=== PATIENT | female | born 1940 | race Caucasian/White ===

== ENCOUNTER 2018-08-02 17:12 | Emergency (ER) | payer MEDICARE, OTHER, SELFPAY ==
[2018-08-02 17:13] VITALS: BP 163/116; PULSE 71; RESP 14; TEMP 35.9; O2SAT 100; BMI 22.6
--- NOTE | 2018-08-02 17:21 | RAD_ITS ---
STUDY: X-RAY - RIGHT WRIST REASON FOR EXAM: Female, 78 years old. Pain status post fall. TECHNIQUE: 3 view(s) of the wrist were obtained. COMPARISON: None. FINDINGS: Bones are demineralized. Normal visualized distal radius and ulna. Normal radiocarpal articulation. Normal distal radioulnar articulation. Normal carpal bones. Normal carpal articulations. Normal carpometacarpal articulation of the thumb. Normal second through fifth carpometacarpal articulations. Normal visualized metacarpal bones. The soft tissue structures are unremarkable. RAD/Wrist min 3 Views IMPRESSION: Normal x-ray examination of the wrist. Electronically Signed: Isabela Parry MD at 17:48 EDT Tel , Service support ,
--- NOTE | 2018-08-02 17:30 | RAD_ITS ---
STUDY: X-RAY - LEFT KNEE REASON FOR EXAM: Female, 78 years old. Left knee pain. TECHNIQUE: 4 view(s) of the knee. COMPARISON: None. FINDINGS: Normal visualized distal femur. Normal visualized proximal tibia and fibula. Normal proximal tibiofibular articulation. There is no demonstrated fracture. Normal medial femorotibial compartment. Normal lateral femorotibial compartment. Normal patellofemoral articulation. There is no demonstrated joint effusion. There are atherosclerotic calcifications. RAD/Knee 4 or More Views IMPRESSION: Normal x-ray examination of the knee. Electronically Signed: Corky Addison MD at 17:52 EDT , Service support ,
--- NOTE | 2018-08-02 17:39 | ED.VISSUMM ---
- ER Visit Summary Date of Service: 08/02/18 Chief Complaint: Mechanical fall, knee pain, wrist pain History of Present Illness: The patient is a 78 F who is otherwise healthy presents to the emergency department with injury after a fall. Patient states she was trying to step over a gait that she has in her house to keep her dog from running. She tripped and fell forward. She did strike her right cheek against a wall but did not lose consciousness. She landed with an outstretched right wrist onto her left knee. She denies other injury. She states she went urgent care but was referred here. She denies any history of fracture. She has not on anticoagulants. Physical Examination: Vital signs reviewed General: Well-nourished, well-developed Head: Normocephalic, atraumatic Eyes: Pupils equal and reactive, extraocular muscles intact Neck, supple, no lymphadenopathy Heart: Regular rate and rhythm Respiratory: No distress, clear bilaterally Abdomen: Soft, nontender, nondistended, no peritoneal signs Back: Nontender Extremities: Mild tenderness in the right wrist and left knee, no laxity, knee extension is intact, pulses are normal, no edema, no cords Skin: Normal color no rash Neuro: Alert and oriented, no focal or lateralizing deficits Test Results: [] Emergency Department Course and Treatment: The patient presents after mechanical fall. She has no evidence of head injury. I did obtain plain films of her wrist and knee. There is no evidence of fracture or dislocation. She is able to extend the knee and bear weight. I do feel her symptoms are secondary to contusion. She will continue ice and Tylenol. The patient will be discharged home. Treatment Plan: [] Disposition: Discharge Impression: 1. Left knee contusion status post fall 2. Right wrist contusion status post fall This note was generated with [employer] dictation software. It may contain incorrect words, spelling, and punctuation that were not noted in review of the chart prior to signing ED Disposition - Plan for ED Patient: Chief Complaint: Fall Instructions: ED Mechanical Fall Referrals: Florida Coleman MD [Primary Care Provider] -
== END 2018-08-02 18:26 | disposition home or self-care (01) ==
LOC: ED 18:21
PROVIDERS: Emergency Provider Emergency Medicine; Family Provider Internal Medicine; PCP Internal Medicine
DX: S80.02XA Contusion of left knee, initial encounter (principal); S60.211A Contusion of right wrist, initial encounter; W18.09XA Striking against other object with subsequent fall, initial encounter; Y93.9 Activity, unspecified; Y92.9 Unspecified place or not applicable; I10 Essential (primary) hypertension; Z79.899 Other long term (current) drug therapy
CPT/HCPCS: 73110; 73564; 99282

== ENCOUNTER 2019-02-23 17:24 | Emergency (ER) | payer MEDICARE, OTHER, SELFPAY ==
[2019-02-23 17:26] VITALS: BP 148/61; PULSE 75; RESP 16; TEMP 36.9; O2SAT 98; BMI 22.5
--- NOTE | 2019-02-23 18:04 | ED.VIS.GEN ---
History of Present Illness Chief Complaint: Eye Problem Informant: Patient Onset: Days - 9 Context: Sudden Onset Timing: Continuous Quality: burn Location: right eye Current Severity: Mild Maximum Severity: Moderate Worsened by: nothing Relieved by: not by Tobradex and moisturizing drops Associated Symptoms: none. no vision change, headache, discharge. Narrative: Patient saw Dr. Engel with ophthalmology after she accidentally got some new hair gel into her right eye, which caused irritation. It was red and burning. The redness is gone, but she still has the burning despite doing the drops the aviation electrician recommended a week ago. She has not called them. It is Monday. - Past Medical History (1) Depression, acute Status: Chronic (2) Hypertension Status: Chronic Past Medical History - Allergies and Home Meds Allergies/Adverse Reactions: Allergies azithromycin [From Zithromax Z-Gabino] Allergy (Verified 02/23/19 17:30) Rash bacitracin [From Neosporin ([id number])] Allergy (Verified 02/23/19 17:30) Rash bacitracin zinc [From Neosporin ([id number])] Allergy (Verified 02/23/19 17:30) Rash fluconazole Allergy (Verified 02/23/19 17:30) Rash iodine Allergy (Verified 02/23/19 17:30) Rash ketoconazole Allergy (Verified 02/23/19 17:30) Rash lactose Allergy (Verified 02/23/19 17:30) Unknown neomycin sulfate [From Neosporin ([id number]-qls-unyaf)] Allergy (Verified 02/23/19 17:30) Rash polymyxin B [From Neosporin (ocf-myh-pvrco)] Allergy (Verified 02/23/19 17:30) Rash promethazine Allergy (Verified 02/23/19 17:30) Unknown hydrochlorothiazide Adverse Reaction (Severe, Verified 02/23/19 17:30) hyponatremia IVP DYE Allergy (Uncoded 02/23/19 17:30) Unknown Primary Care Physician: Florida Coleman MD [Primary Care Provider] - Surgical History: cholecystectomy Lives: Alone Smoking Status: Never smoker - Family History Maternal Family History: Family History (Last Reviewed 04/16/18 @ 14:25 by Lizzie Valentin) Mother CVA (cerebral vascular accident) Father CVA (cerebral vascular accident) Brother Hypertension Family History: Reports: Stroke - Paternal Family History: Family History (Last Reviewed 04/16/18 @ 14:25 by Lizzie Valentin) Mother CVA (cerebral vascular accident) Father CVA (cerebral vascular accident) Brother Hypertension Family History: Reports: Stroke - Review of Systems General: Denies: Chills, Fever Eyes: Reports: - - Right eye pain. Denies: Visual changes - bilaterally, Diplopia Gastrointestinal: Denies: Nausea, Vomiting Physical Exam Vital Signs/Narrative: Vital Signs Temp Pulse Resp BP Pulse Ox 02/23/19 17:26 98.4 F 75 16 148/61 H 98 General: Well nourished, Well developed, No Acute Distress Head: Normocephalic, Atraumatic Eyes: Perrl, EOMI, - - Normal-appearing conjunctivae and cornea. Right eye evaluated with slit-lamp. Deep, quiet anterior chamber. Cornea without lesions. No hypopyon or hyphema. No cell or flare seen. No foreign material. Skin: Normal color, No rash, No Trauma Neurological: Alert, Oriented x3, Cranial nerves II-XII grossly intact, Normal Strength, Normal Sensation, Normal Gait Psychological: Normal affect, Normal Mood Diagnostic/Tx/Re-eval - Medical Decision Making Patient was concerned that her eye pressures may be up because of the medication. She states it was 16 when measured in the office. I advised her that that is very normal. She is reassured. She refuses to allow me to numb her eye with tetracaine and check her pressure, the only device that we have to do that with is a Martin-Pen, which requires that I anesthetize her eye. She also refuses to allow me to inspect her eye with fluorescein staining. She understands that if hair gel hardened and scratched her cornea, that could be missed by not doing this. She has had no vision changes and I doubt acute angle-closure glaucoma. She wants to go home and follow-up with her aviation electrician after the weekend. ED Disposition - Plan for ED Patient: Disposition: Home or Assisted Living Diagnosis: Acute right eye pain Instructions: Corneal Injury, First Aid: Chemical Exposure Referrals: Storm Engel MD [STAFF PHYSICIAN] - 2 Days
--- NOTE | 2019-02-23 18:09 | ED.DCSUM_ITS ---
History of Present Illness Chief Complaint: Eye Problem Informant: Patient Onset: Days - 9 Context: Sudden Onset Timing: Continuous Quality: burn Location: right eye Current Severity: Mild Maximum Severity: Moderate Worsened by: nothing Relieved by: not by Tobradex and moisturizing drops Associated Symptoms: none. no vision change, headache, discharge. Narrative: Patient saw Dr. Engel with ophthalmology after she accidentally got some new hair gel into her right eye, which caused irritation. It was red and burning. The redness is gone, but she still has the burning despite doing the drops the renewable energy consultant recommended a week ago. She has not called them. It is Monday. - Past Medical History (1) Depression, acute Status: Chronic (2) Hypertension Status: Chronic Past Medical History - Allergies and Home Meds Allergies/Adverse Reactions: Allergies azithromycin [From Zithromax Z-Gabino] Allergy (Verified 02/23/19 17:30) Rash bacitracin [From Neosporin ([id number])] Allergy (Verified 02/23/19 17:30) Rash bacitracin zinc [From Neosporin (azk-urc-oroby)] Allergy (Verified 02/23/19 17:30) Rash fluconazole Allergy (Verified 02/23/19 17:30) Rash iodine Allergy (Verified 02/23/19 17:30) Rash ketoconazole Allergy (Verified 02/23/19 17:30) Rash lactose Allergy (Verified 02/23/19 17:30) Unknown neomycin sulfate [From Neosporin ([id number]-dvr-ldwub)] Allergy (Verified 02/23/19 17:30) Rash polymyxin B [From Neosporin (dvw-alh-banho)] Allergy (Verified 02/23/19 17:30) Rash promethazine Allergy (Verified 02/23/19 17:30) Unknown hydrochlorothiazide Adverse Reaction (Severe, Verified 02/23/19 17:30) hyponatremia IVP DYE Allergy (Uncoded 02/23/19 17:30) Unknown Primary Care Physician: Florida Coleman MD [Primary Care Provider] - Surgical History: cholecystectomy Lives: Alone Smoking Status: Never smoker - Family History Maternal Family History: Family History (Last Reviewed 04/16/18 @ 14:25 by Lizzie Valentin) Mother CVA (cerebral vascular accident) Father CVA (cerebral vascular accident) Brother Hypertension Family History: Reports: Stroke - Paternal Family History: Family History (Last Reviewed 04/16/18 @ 14:25 by Lizzie Valentin) Mother CVA (cerebral vascular accident) Father CVA (cerebral vascular accident) Brother Hypertension Family History: Reports: Stroke - Review of Systems General: Denies: Chills, Fever Eyes: Reports: - - Right eye pain. Denies: Visual changes - bilaterally, Diplopia Gastrointestinal: Denies: Nausea, Vomiting Physical Exam Vital Signs/Narrative: Vital Signs Temp Pulse Resp BP Pulse Ox 02/23/19 17:26 98.4 F 75 16 148/61 H 98 General: Well nourished, Well developed, No Acute Distress Head: Normocephalic, Atraumatic Eyes: Perrl, EOMI, - - Normal-appearing conjunctivae and cornea. Right eye evaluated with slit-lamp. Deep, quiet anterior chamber. Cornea without lesions. No hypopyon or hyphema. No cell or flare seen. No foreign material. Skin: Normal color, No rash, No Trauma Neurological: Alert, Oriented x3, Cranial nerves II-XII grossly intact, Normal Strength, Normal Sensation, Normal Gait Psychological: Normal affect, Normal Mood Diagnostic/Tx/Re-eval - Medical Decision Making Patient was concerned that her eye pressures may be up because of the medication. She states it was 16 when measured in the office. I advised her that that is very normal. She is reassured. She refuses to allow me to numb her eye with tetracaine and check her pressure, the only device that we have to do that with is a Martin-Pen, which requires that I anesthetize her eye. She also refuses to allow me to inspect her eye with fluorescein staining. She understands that if hair gel hardened and scratched her cornea, that could be missed by not doing this. She has had no vision changes and I doubt acute angle-closure glaucoma. She wants to go home and follow-up with her renewable energy consultant after the weekend. ED Disposition - Plan for ED Patient: Disposition: Home or Assisted Living Diagnosis: Acute right eye pain Instructions: Corneal Injury, First Aid: Chemical Exposure Referrals: Storm Engel MD [STAFF PHYSICIAN] - 2 Days
[2019-02-23 18:22] VITALS: RESP 15
== END 2019-02-23 18:24 | disposition home or self-care (01) ==
LOC: ED 18:16
PROVIDERS: Emergency Provider Emergency Medicine; Family Provider Internal Medicine; PCP Internal Medicine
DX: H57.11 Ocular pain, right eye (principal); I10 Essential (primary) hypertension
CPT/HCPCS: 99283

== ENCOUNTER 2020-10-28 14:57 | Emergency (ER) | payer MEDICARE, OTHER, SELFPAY ==
[2019-07-11 14:04] VITALS: BMI 20.9
[2020-10-28 14:59] VITALS: BP 147/78; PULSE 79; RESP 16; TEMP 36.2; O2SAT 99; BMI 20.1
[2020-10-28 15:01] VITALS: BP 147/78; PULSE 79; RESP 16; TEMP 36.2; O2SAT 99
--- NOTE | 2020-10-28 15:17 | ED.VIS.GEN ---
History of Present Illness Chief Complaint: Head Injury Informant: Patient Narrative: Patient is an 80-year-old female with a past medical history of hypertension who presents to the emergency department for neck pain and not feeling quite right. She had a fall 2 weeks ago when she struck the back of her head from a standing position. She denies losing consciousness at that time. No other injury noted. She was not seen at that time or since. She states that she has had some blurred vision associated with this. She does have chronic visual problems but feel like they are worse. She has not been taking anything for her symptoms. She is on any blood thinning medications. Patient also brings up that she is feeling depressed. She states that she is on and off issues for quite some time but she is unable to really specify for me. She lives at home by herself. She does not really have family except for 1 brother. She feels very lonely and does not feel like she has a purpose. She denies any thoughts of harming herself or anyone else. She has never been seen before for this issue. She states that she has not been eating much lately as she has not really had an appetite. Past Medical History - Allergies and Home Meds Allergies/Adverse Reactions: Allergies azithromycin [From Zithromax Z-Gabino] Allergy (Verified 07/11/19 14:04) Rash bacitracin [From Neosporin (jza-quk-rzzkr)] Allergy (Verified 07/11/19 14:04) Rash bacitracin zinc [From Neosporin ([id number]-ozp-iyvtt)] Allergy (Verified 07/11/19 14:04) Rash fluconazole Allergy (Verified 07/11/19 14:04) Rash iodine Allergy (Verified 07/11/19 14:04) Rash ketoconazole Allergy (Verified 07/11/19 14:04) Rash lactose Allergy (Verified 07/11/19 14:04) Unknown neomycin sulfate [From Neosporin (ghx-cnx-ibjao)] Allergy (Verified 07/11/19 14:04) Rash polymyxin B [From Neosporin (jtu-krs-saplx)] Allergy (Verified 07/11/19 14:04) Rash promethazine Allergy (Verified 07/11/19 14:04) Unknown hydrochlorothiazide Adverse Reaction (Severe, Verified 07/11/19 14:04) hyponatremia IVP DYE Allergy (Uncoded 07/11/19 14:04) Unknown Primary Care Physician: Florida Coleman MD [Primary Care Provider] - Prior records reviewed: Yes Past Medical History: - - HTN Surgical History: cholecystectomy Smoking Status: Never smoker - Family History Maternal Family History: Family History (Last Reviewed 07/11/19 @ 14:06 by Abi Petersen) Mother CVA (cerebral vascular accident) Father CVA (cerebral vascular accident) Brother Hypertension Family History: Reports: Stroke - Paternal Family History: Family History (Last Reviewed 07/11/19 @ 14:06 by Abi Petersen) Mother CVA (cerebral vascular accident) Father CVA (cerebral vascular accident) Brother Hypertension Family History: Reports: Stroke - Review of Systems All systems negative except as indicated General: Denies: Chills, Fever, Sweats Eyes: Reports: Blurred Vision - bilaterally. Denies: Visual changes - bilaterally, Diplopia ENT: Denies: Rhinorrhea, Sore throat Cardiovascular: Denies: Chest pain, Palpitations Respiratory: Denies: Dyspnea, Cough, Dyspnea on exertion Gastrointestinal: Denies: Abdominal pain, Nausea, Vomiting, Diarrhea Genitourinary: Denies: Dysuria, Hematuria, Frequency Musculoskeletal: Reports: Neck pain. Denies: Back pain, Extremity Pain Skin: Denies: Rash, Wounds Neurological: Denies: Headache, Weakness, Numbness Psych: Reports: Depression. Denies: Suicidal thoughts, Suicidal ideations Physical Exam Vital Signs/Narrative: Vital Signs Temp Pulse Resp BP Pulse Ox 10/28/20 15:01 97.1 F L 79 16 147/78 H 99 10/28/20 14:59 97.1 F L 79 16 147/78 H 99 Inital Vital Signs reviewed: Yes General: Well nourished, Well developed, No Acute Distress Head: Normocephalic, Atraumatic Eyes: Perrl, EOMI ENT: Moist mucous membranes, No rhinorrhea Neck: Supple, Nontender Cardiovascular: Regular rate, Regular rhythm, No murmurs Respiratory: No distress, CTA bilaterally, Chest nontender Abdomen: Soft, Nontender, Nondistended, Normal bowel sounds Back: Nontender, Normal Inspection Extremities: Nontender, No edema Skin: Normal color, No rash Neurological: Alert, Oriented x3, Cranial nerves II-XII grossly intact, Normal Strength, Normal Sensation Psychological: Normal affect, Normal Mood Diagnostic/Tx/Re-eval - Medical Decision Making Patient presents to the emergency department for a fall that occurred 2 weeks ago. She has been having neck pain and blurred vision. She is also complaining of what sounds like a lot of depression symptoms. She lives at home by herself and is lonely. Will obtain CT scan of the head and neck. Most likely she is suffering from postconcussive symptom. Will have high school social science teacher evaluate patient for resources. I did offer pain medication but she is refusing. CT scan of the head did not reveal any acute traumatic findings. Neck does show degenerative changes but no fracture or subluxation. Social work did give resources. Apparently patient has been in counseling before and would like to get restarted on this. He also gave her info to [facility] who is going to contact her. Patient feels good with this plan and does feel comfortable being discharged home. She is to have close follow-up with her PCP. Return precautions were discussed with her. I did recommend that she take ibuprofen and Tylenol as needed for the neck discomfort. She understands and is agreeable this plan. All questions were answered. ED Disposition - Plan for ED Patient: Disposition: Home or Assisted Living Diagnosis: CHI (closed head injury), Depression Instructions: ED Head Injury (Adult), ED Depression Referrals: Florida Coleman MD [Primary Care Provider] - 3-5 Days
--- NOTE | 2020-10-28 15:22 | CT_ITS ---
STUDY: CT CERVICAL SPINE WITHOUT CONTRAST REASON FOR EXAM: Female, 80 years old. FALL 2 WEEKS AGO RADIATION DOSAGE (If Supplied By Facility): CTDIvol = ( 11.79 ) mGy, DLP = ( 475.34 ) mGycm TECHNIQUE: High resolution transaxial imaging was performed without contrast material. Sagittal and coronal images were reconstructed. Individualized dose optimization techniques were used for this CT. COMPARISON: None FINDINGS: Normal craniovertebral junction. There are degenerative changes of the anterior atlantoaxial articulation. Normal odontoid process. Normal cervical lordosis. Normal vertebral bodies and posterior osseous elements. C2-3: Normal endplates. Normal disc height and morphology. Normal central canal and intervertebral neuroforamina. C3-4: Minimal anterior listhesis of C3 on C4. Facet joint osteoarthritis and hypertrophy. C4-5: Moderate degree of disc space narrowing. Spondylosis. No significant stenosis is seen. C5-6: Moderate degree of disc space narrowing and spondylosis. Uncovertebral arthrosis. Minimal bilateral neural foraminal stenosis. C6-7: Normal endplates. Normal disc height and morphology. Normal central canal and intervertebral neuroforamina. C7-T1: Normal endplates. Normal disc height and morphology. Normal central canal and intervertebral neuroforamina. Normal visualized soft tissue structures. CT/Spine Cervical without Contras IMPRESSION: Multilevel degenerative changes, as described above. Electronically Signed: Carlitos Rosario, at 16:03 EST , Service support ,
--- NOTE | 2020-10-28 15:22 | CT_ITS ---
STUDY: CT BRAIN WITHOUT CONTRAST REASON FOR EXAM: Female, 80 years old. FALL 2 WEEKS AGO RADIATION DOSAGE (If Supplied By Facility): CTDIvol = ( 44.99 ) mGy, DLP = ( 779.24 ) mGycm TECHNIQUE: Transaxial CT imaging of the brain was performed without administration of intravenous contrast material. Individualized dose optimization techniques were used for this CT. COMPARISON: Comparison is made with prior study dated 01/27/2011. FINDINGS: Normal soft tissue structures. There is hyperostosis frontalis internus. There is mild cerebral atrophy with widening of the extra-axial spaces and ventricular dilatation. There are areas of decreased attenuation within the white matter tracts of the supratentorial brain, consistent with microvascular disease changes. Normal basal ganglia and thalami. Normal brainstem. Normal cerebellum. There is no intracranial hemorrhage. There are no findings of an acute ischemic infarction. Atherosclerotic calcification of the cavernous portions of the internal carotid arteries bilaterally. Normal visualized paranasal sinuses. CT/Brain/Head without Contrast IMPRESSION: Chronic involutional changes of the brain. Electronically Signed: Carlitos Rosario, at 16:02 EST , Service support ,
--- NOTE | 2020-10-28 15:45 | CM.ED ---
Social Work Consult: Resources Informant: Dr. Conroy Met with patient in room. Introduced self and social insurance administrator role. Patient agreeable to speak with this social insurance administrator. Patient reports to live at home alone for the past 5 years since patient spouse, Lasha . Patient voices concerns about being able to do okay on my own. This social insurance administrator exploring patient concerns. Patient reports that patient spouse use to pump gas in my car and write all the checks and did lots for me. Patient reports that currently to have neighbors and friends that have been helping with getting gas in patient car and assisting with writing checks. This social insurance administrator attempting to focus on patient strengths and resiliency after patient spouse passed to reach out for supports. Patient states Yeah I guess you rights, I get anxious about things. This social insurance administrator exploring if patient has any history of mental health services. Patient reports to have a history of being in counseling but it has been awhile. This social insurance administrator explored patient openness to start counseling again, patient open to this social insurance administrator providing patient with list of local counseling agencies. Patient is also agreeable to this social insurance administrator making referral to [facility] senior environmental permitting specialist to see if there are any further services that patient would benefit from. Patient reports to be primarily independent and still drives. Patient states main limitation currently is taking care of the house. Patient also reports to have thought about assisted living. This social insurance administrator provided patient with information on local assisted livings, patient open to receiving this list. Patient denies any suicidal thoughts, plans or intents but does report to feel down. Active support and listening provided throughout conversation. Patient thanked this social insurance administrator. This social insurance administrator provided patient with information on all mentioned resources and encouraged patient to reach out to a local counseling agency. Updated Dr. Conroy on above. PLAN: Discharge to community Referral for [facility] program faxed to Lias Sequeira at [email or web address]. Tanja HAYS, HIREN.
--- NOTE | 2020-10-28 16:33 | ED.RN ---
DISCHARGE INSTRUCTIONS GIVEN TO AND REVIEWED WITH PATIENT, PATIENT DENIES QUESTIONS OR CONCERNS AND VOICES UNDERSTANDING OF DISCHARGE INSTRUCTIONS. PT AMBULATES OUT OF ROOM WITHOUT DIFFICULTY.
== END 2020-10-28 16:34 | disposition home or self-care (01) ==
PROVIDERS: Emergency Provider Emergency Medicine; PCP Internal Medicine
DX: S09.90XA Unspecified injury of head, initial encounter (principal); W18.09XA Striking against other object with subsequent fall, initial encounter; Y93.9 Activity, unspecified; Y92.89 Other specified places as the place of occurrence of the external cause; Y99.9 Unspecified external cause status; F32.9 Major depressive disorder, single episode, unspecified; I10 Essential (primary) hypertension; Z82.49 Family history of ischemic heart disease and other diseases of the circulatory system; Z88.1 Allergy status to other antibiotic agents; Z88.3 Allergy status to other anti-infective agents; Z90.49 Acquired absence of other specified parts of digestive tract
CPT/HCPCS: 70450; 72125; 99282

== ENCOUNTER 2022-09-03 12:09 | Emergency (ER) | payer MEDICARE, OTHER, SELFPAY ==
[2022-09-03 12:18] VITALS: BP 142/68; PULSE 85; RESP 28; TEMP 36.9; O2SAT 97; BMI 19.8
--- NOTE | 2022-09-03 12:26 | CT_ITS ---
EXAM: CT HEAD WITHOUT INTRAVENOUS CONTRAST CLINICAL INDICATION: altered mental status TECHNIQUE: Multiple axial images were obtained of the head without intravenous contrast. CTDIvol = ( 44.99 ) mGy, DLP = ( 779.24 ) mGycm This CT exam was performed using one or more of the following dose reduction techniques: automated exposure control, adjustment of the mA and/or kV according to patient size, and/or use of iterative reconstruction technique. This report was created using [employer] report generation technology. COMPARISON: 10/28/2020 CT FINDINGS: BRAIN AND EXTRA-AXIAL SPACES: No acute intracranial hemorrhage, mass effect or edema. No evidence of acute cortical stroke. Periventricular small vessel ischemic change. No midline shift or hydrocephalus. Diffuse parenchymal atrophy. Posterior fossa structures are unremarkable. Basal cisterns are patent. BONES/JOINTS: Unremarkable. No discrete lytic or blastic abnormalities. VASCULATURE: Atherosclerotic calcifications of the carotid siphons and vertebrobasilar arteries. SINUSES: Unremarkable as visualized. Clear. MASTOID AIR CELLS: Visualized sinuses and mastoid air cells are clear. ORBITS: Visualized globes, extraocular muscles, optic nerves and retrobulbar fat appear unremarkable. CT/Brain/Head without Contrast IMPRESSION: 1. No evidence of acute intracranial pathology. 2. Diffuse involutional changes and chronic ischemic small vessel white matter disease. Electronically Signed: Carl Grossman MD at 13:28 EST ,
--- NOTE | 2022-09-03 12:28 | EKG12_ITS ---
Test Reason : CONFUSION Blood Pressure : / mmHG Vent. Rate : 085 BPM Atrial Rate : 085 BPM P-R Int : 126 ms QRS Dur : 070 ms QT Int : 324 ms P-R-T Axes : 062 064 058 degrees QTc Int : 385 ms Normal sinus rhythm Normal ECG Confirmed by ANGIE REEDER, GIRMA ([id number]), development editor FINESSE LUCIO ([id number]) on 09/06/2022 11:04:38 AM Referred By: Confirmed By:GIRMA ADAMS MD
--- NOTE | 2022-09-03 12:30 | EX.ED.DYSGE1 ---
HPI History of Present Illness Chief Complaint: Confusion Informant: patient and EMS Narrative Narrative: Patient lives alone and is confused, she cannot present a good history, she admits to having some diarrhea and dysuria and feeling weak all over but denies any other symptoms, and cannot tell us how long she has had these, just for a while. Although the patient is the only when here right now being brought by EMS, apparently the patient's kgipwy-qw-bvh had talked to her and noted that she was confused and called EMS for her. [facility] Medical History (Updated 09/03/22 @ 15:[address] Migue Deras MD) Anxiety Depression, acute Diverticulosis Essential hypertension GERD (gastroesophageal reflux disease) Hyponatremia Macular degeneration Home Medications lorazepam 0.5 mg tablet 0.5 mg PO DAILY 12/10/13 [History Last Taken 12/28/15] vit C 250 mg-vit E 90 mg-zinc 40 mg-copper 1 ia-ualtvx-uvytdi capsule 1 ea PO DAILY 12/10/13 [History Last Taken 12/28/15] metoprolol tartrate 50 mg tablet 25 mg PO BID 01/10/14 [History Last Taken 12/29/15] amlodipine 5 mg tablet 2.5 mg PO DAILY 12/15/15 [History Last Taken 12/29/15] dexlansoprazole 60 mg capsule,biphase delayed release (Dexilant) 60 mg PO QDAY 04/16/18 [History Last Taken Unknown] losartan 50 mg tablet 50 mg PO DAILY 07/11/19 [History Last Taken Unknown] losartan 25 mg tablet 25 mg PO QHS 09/03/22 [History Last Taken Unknown] Allergy/AdvReac Type Severity Reaction Status Date / Time azithromycin Allergy Rash Verified 09/03/22 12:18 [From Zithromax Z-Gabino] bacitracin Allergy Rash Verified 09/03/22 12:18 [From Neosporin ([id number])] bacitracin zinc Allergy Rash Verified 09/03/22 12:18 [From Neosporin ([id number])] fluconazole Allergy Rash Verified 09/03/22 12:18 iodine Allergy Rash Verified 09/03/22 12:18 ketoconazole Allergy Rash Verified 09/03/22 12:18 lactose Allergy Unknown Verified 09/03/22 12:18 neomycin sulfate Allergy Rash Verified 09/03/22 12:18 [From Neosporin ([id number])] polymyxin B Allergy Rash Verified 09/03/22 12:18 [From Neosporin ([id number])] promethazine Allergy Unknown Verified 09/03/22 12:18 hydrochlorothiazide AdvReac Severe hyponatremi Verified 09/03/22 12:18 a IVP DYE Allergy Unknown Uncoded 09/03/22 12:18 Family History Mother CVA (cerebral vascular accident) Father CVA (cerebral vascular accident) Brother Hypertension Surgical History History of cholecystectomy History of hip surgery Social History Smoking Status: Never smoker alcohol intake: never substance use type: does not use ROS ROS ED Review of Systems ROS Unobtainable: due to mental status Constitutional Constitutional ED: Denies chills or fever(s) Eyes Eyes: Denies change in vision ENT ENT ED: Denies sore throat Cardiovascular Cardiovascular: Denies chest pain or palpitations Respiratory/Chest Respiratory/Chest: Denies dyspnea Gastrointestinal Gastrointestinal: Denies abdominal pain, nausea or vomiting Genitourinary Genitourinary ED: Reports dysuria; Denies hematuria Musculoskeletal Musculoskeletal: Reports back pain; Denies neck pain Integumentary Denies abscess or rash Neurologic Neurologic: Reports confusion; Denies headache(s), paresthesias or weakness Psychiatric Psychiatric: Denies anxiety or suicidal thoughts EXAM Physical Exam Const Vital Signs: 09/03/22 12:18 09/03/22 12:22 09/03/22 14:04 Temperature 98.4 F 98.4 F Temperature Source Oral Oral Pulse Rate 85 85 Respiratory Rate 28 H 28 H Respiratory Effort Normal Non-Labored Respiratory Pattern Normal Blood Pressure 142/68 H 142/68 H Blood Pressure Mean 92 92 Pulse Ox 97 97 Oxygen Delivery Method Room Air Room Air 09/03/22 15:26 Temperature 98.4 F Temperature Source Oral Pulse Rate 77 Respiratory Rate 18 Respiratory Effort Respiratory Pattern Blood Pressure 142/68 H Blood Pressure Mean 92 Pulse Ox 97 Oxygen Delivery Method Room Air Positive well nourished and well developed General Appearance ED: well developed and NAD HEENT Reports dry mucous membranes normocephalic and atraumatic Mouth ED: Yes dry mucous membranes Mouth: dry mucous membranes Eyes PERRL and EOMs intact bilaterally Neck full ROM, no lymphadenopathy and supple Resp normal respiratory effort and clear to auscultation bilaterally Cardio regular rate, regular rhythm and no murmurs GI non-tender and non-distended Auscultation: normoactive bowel sounds Palpation: soft Back/Spine no CVA tenderness General Back: other FROM Extremity normal to inspection General Extremety ED: Negative for edema, pulses abnormal or tenderness General Extremity: Negative for edema or pulses abnormal Neuro CN's II-XII intact bilaterally and no sensory deficits noted Neuro Narrative: 4/5 strength throughout all 4 extremities, no asymmetry. Confused, not oriented to time but does know that she is in the right place. Sensorium / Orientation: awake, alert and orientation impaired Motor Exam: general weakness Skin no rashes or lesions noted Skin Narrative: Healing wound versus rash medial right lower leg/calf, nontender. Some sloughing superficial epidermis over it. Fairly well-circumscribed, no ulceration or signs of acute infection. MDM MDM MDM Narrative Medical decision making narrative: Medical work-up on this patient is negative except for mild prerenal azotemia consistent with how she looks clinically, a little dehydrated. She was given IV fluids, her jfbmza-xj-aax arrived before the IV fluids were given, and states afterwards she think she looks much better than she did earlier, the patient is ambulatory to and from the bathroom without assistance and doing better than she was before. Medically otherwise there is nothing else acute going on, her cardiac work-up is normal, urine shows no infection, CT of the head negative for anything acute, and chest x-ray 1 view on my interpretation is negative for any pneumonia/infection. Discussed at length with the patient and her rjetxc-jw-ikz, who states that she suspects the patient is getting dementia like her had before he . Patient has been having progressively worsening memory issues, but the patient affirms that she can still care for herself, and declines an offer for admission/placement and wants to go home. I discussed this with the physician on-call for her PCP, Dr. Capone, and turns out the patient has an appointment at their office 2 days from now on Monday. We do not have social work here today for me to assist in this patient's care after she leaves the ED, I think she may benefit from a home health evaluation in addition to an evaluation for possible dementia for which she is not on medications at this time. Discussed with the [id number] and the patient and the PCP on-call and they are all comfortable with this overall plan. Lab Data Attestation: I reviewed the patient's lab results. Labs: Laboratory Results - last 24 hr 09/03/22 09/03/22 09/03/22 13:05 13:05 13:35 WBC 11.4 H RBC 3.41 L Hgb 10.9 L Hct 33.2 L MCV 97.4 MCH 32.0 MCHC 32.8 RDW Std Deviation 45.1 H RDW Coeff of Pranav 12.5 Plt Count 196 MPV 10.5 Immature Gran % (Auto) 0.500 Neut % (Auto) 76.1 H Lymph % (Auto) 12.1 L [place] % (Auto) 10.8 H Eos % (Auto) 0.1 Baso % (Auto) 0.4 Absolute Neuts (auto) 8.7 H Absolute Lymphs (auto) 1.38 Nucleated RBC % 0 Platelet Estimate ADEQUATE RBC Morphology NORM C+C Sodium 136 Potassium 4.8 Chloride 109 H Carbon Dioxide 20.0 L Anion Gap 7 BUN 19 H Creatinine 0.66 Estim Creat Clear Calc 33.11 Est GFR (MDRD) Af Amer 110 Est GFR (MDRD) Non-Af 91 BUN/Creatinine Ratio 28.8 H Glucose 94 Calcium 9.3 Total Bilirubin 0.90 AST 36 ALT 35 Alkaline Phosphatase 84 Total Protein 6.3 L Albumin 2.7 L Globulin 3.6 Albumin/Globulin Ratio 0.8 L Lipase 84 Urine Color Yellow Urine Clarity Clear Urine pH 6.0 Ur Specific [place] 1.015 Urine Protein Negative Urine Glucose (UA) Normal Urine Ketones 15 H Urine Occult Blood 10 H Urine Nitrite Negative Urine Bilirubin Negative Urine Urobilinogen Normal Ur Leukocyte Esterase Negative Urine RBC 0 SEEN Urine WBC 0-5 SEEN Ur Squamous Epith Cells 0-5 SEEN Urine Bacteria 0 SEEN Urine Mucus 0 SEEN Radiography Diagnostic Testing: Clinical Impression(s) from Imaging Studies Brain CT 09/03/22 12:26 IMPRESSION: 1. No evidence of acute intracranial pathology. 2. Diffuse involutional changes and chronic ischemic small vessel white matter disease. Electronically Signed: Carl Grossman MD at 13:28 EST , Chest X-Ray 09/03/22 13:13 IMPRESSION: No acute cardiopulmonary disease. Electronically Signed: Carl Grossman MD at 13:24 EST , Rhythm Strip Rhythm Strip: Sinus Rhythm Rate: 85 Ectopy: None EKG Initial EKG: Attestation: I personally reviewed and interpreted this EKG as follows: Interpretation: Sinus Rhythm and No Acute Injury Pattern Comments: nml EKG Discharge Plan Triage Chief Complaint: Confusion Other Complaint: Diarrhea Complaint Weakness ED Provider: Migue Deras Dx/Rx/DC Orders Clinical Impression: Mild dehydration, [place] progression of memory impairment Instructions: Understanding Dementia, Dehydration Prescriptions: No Action dexlansoprazole [Dexilant] 60 mg capsule,biphase delayed releas 60 mg PO QDAY losartan 50 mg tablet 50 mg PO DAILY Label Comments: BLOOD PRESSURE lorazepam 0.5 MG tablet 0.5 mg PO DAILY Label Comments: ANXIETY vit C,N-Xh-koigs-lutein-zeaxan 1 EACH capsule 1 ea PO DAILY Label Comments: SUPPLEMENT metoprolol tartrate 50 MG tablet 25 mg PO BID Label Comments: BLOOD BPRESSURE/HEART RATE amlodipine 5 MG tablet 2.5 mg PO DAILY Label Comments: BLOOD PRESSURE losartan 25 mg Tablet 25 mg PO QHS Primary Care Provider: Florida Coleman Referrals: Florida Coleman MD [Primary Care Provider] - 09/05/22 (as scheduled) Disposition Disposition: Home, Self Care
[2022-09-03] MEDS: 0.9% Normal Saline 1,000 ML 150 ML IV (12:37)
--- NOTE | 2022-09-03 13:13 | RAD_ITS ---
EXAM: XR CHEST, 1 VIEW CLINICAL INDICATION: weakness TECHNIQUE: Frontal view of the chest. This report was created using [employer] report generation technology. COMPARISON: 01/01/2016 FINDINGS: LUNGS AND PLEURAL SPACES: Emphysema suggested. No consolidation. No pleural effusion or pneumothorax. HEART: Unremarkable. Cardiac silhouette not enlarged. MEDIASTINUM: Central airways and mediastinal contour are unremarkable. BONES/JOINTS: Degenerative changes of the spine. Degenerative changes of the acromioclavicular joints. Diffuse osteopenia. SOFT TISSUES: Unremarkable. VASCULATURE: Atherosclerotic calcifications of the nonenlarged thoracic aortic arch. RAD/Chest 1 View (Portable) IMPRESSION: No acute cardiopulmonary disease. Electronically Signed: Carl Grossman MD at 13:24 EST ,
[2022-09-03 13:14] LABS: Absolute Lymphocyte Count 1.38 X10^3/uL (0.83-4.51); Absolute Neutrophil Count 8.7 X10^3/uL (2.0-7.7); Basophil# 0.05 X10^3/uL; Basophil% 0.4 % (0-1); Eosinophil# 0.01 X10^3/uL; Eosinophils% 0.1 % (0-5); Hematocrit 33.2 % (37-47); Hemoglobin 10.9 g/dL (12.0-15.0); Lymphocyte # 1.38 X10^3/ul (0.83-4.51); Lymphocyte % 12.1 % (19-41); Mean Corp Hgb Conc 32.8 g/dL (32-36); Mean Corpuscular Volume 97.4 fL (81-99); Mean Platelet Vol. 10.5 fl (6.2-12.0); Monocyte# 1.23 X10^3/uL; Monocyte% 10.8 % (0-10); NRBC Flagged by Analyzer 0 % (0-5); Neutrophil # 8.66 X10^3/uL (2.7-7.7); Neutrophil % 76.1 % (47-70); POSITIVE COUNT YES; Platelet Count 196 K/mm3 (150-450); RBC Distribution Width CV 12.5 % (11.6-14.6); RBC Distribution Width SD 45.1 fl (35.1-43.9); Red Blood Count 3.41 M/mm3 (4.2-5.4); White Blood Count 11.4 K/mm3 (4.4-11.0)
[2022-09-03 13:38] LABS: Bacteria 0 SEEN /hpf (None Seen); Mucous, Urine 0 SEEN /hpf (<or=2+); Red Blood Cells-Urine 0 SEEN /hpf (0-5)
[2022-09-03 13:39] LABS: Color, Urine Yellow (Yellow); Glucose, Dipstick Normal (Normal); Ketone-Dipstick 15 mg/dl (Negative); Leukocyte Esterase-Dipstick Negative /ul (Negative); Nitrite-Dipstick Negative (Negative); Occult Blood-Urine 10 /ul (Negative); Protein-Dipstick Negative (Negative); Specific Gravity, Urine 1.015 (1.002-1.030); Urine Bilirubin Dipstick Negative (Negative); Urine Clarity Clear (Clear); Urine Urobilinogen Normal (Normal)
[2022-09-03 13:57] LABS: Squamous Epithelial Cells - UA 0-5 SEEN /hpf (5-10); White Blood Cells 0-5 SEEN /hpf (0-5)
[2022-09-03 14:04] VITALS: BP 142/68; PULSE 85; RESP 28; TEMP 36.9; O2SAT 97
[2022-09-03 14:09] LABS: ALB/GLOB Ratio 0.8 RATIO (0.9-2.4); AST(SGOT) 36 U/L (15-37); Alanine Aminotransfer ALT/SGPT 35 U/L (13-56); Albumin, Serum 2.7 g/dL (3.2-5.0); Alkaline Phosphatase 84 U/L (45-117); Anion Gap 7 (5-15); BUN 19 mg/dL (7-18); BUN/Creat Ratio 28.8 RATIO (10-20); Calcium,Total 9.3 mg/dL (8.5-10.1); Chloride 109 mmol/L (98-107); Creatinine, Serum 0.66 mg/dL (0.55-1.02); EST Glomerular Filtration Rate 91 mL/min (>60); Est Glom Filt Rate - Afr Amer 110 mL/min (>60); Estimated Creatinine Clearance 33.11 ml/min; Globulin 3.6 g/dL (2.2-4.2); Glucose 94 mg/dL (74-106); Lipase 84 U/L (73-393); Potassium 4.8 mmol/L (3.5-5.1); Protein, Total 6.3 g/dL (6.4-8.2); Sodium Level 136 mmol/L (136-145)
[2022-09-03 14:10] LABS: Differential Indicated SCAN CRITERIA MET
[2022-09-03 14:11] LABS: Platelet Estimate ADEQUATE (ADEQ); Red Cell Morphology NORM C+C NORMAL (NORM C&C)
[2022-09-03 15:26] VITALS: BP 142/68; PULSE 77; RESP 18; TEMP 36.9; O2SAT 97
== END 2022-09-03 15:58 | disposition home or self-care (01) ==
PROVIDERS: Emergency Provider Emergency Medicine; PCP Internal Medicine; Visit Provider Emergency Medicine
DX: E86.0 Dehydration (principal); R19.7 Diarrhea, unspecified; R41.0 Disorientation, unspecified; I10 Essential (primary) hypertension; Z60.2 Problems related to living alone
CPT/HCPCS: 70450; 71045; 80053; 81001; 83690; 85025; 93005; 96360; 96361; 99285; P9612; A4216

== ENCOUNTER 2022-09-05 15:23 | Observation (INO) | payer MEDICARE, OTHER, SELFPAY ==
[2022-09-05] VITALS (8 sets, daily range): BP systolic 135–171; BP diastolic 70–121; PULSE 95–147; RESP 16–21; TEMP 36.4–37; O2SAT 98–100; BMI 20.9; BMI 17.9
--- NOTE | 2022-09-05 17:28 | EDS_ITS ---
HPI History of Present Illness Chief Complaint: Weakness Narrative Narrative: Patient presents with generalized weakness, we saw her 2 days ago for multiple falls however in the meantime she has fallen 5 more times. She had imaging at the time since she had a head injury. She has decreased p.o. intake, she does by her self although she has friends visiting and since she fell on Monday one of the friend stayed with her. She has no fever or chills, she does have some chronic confusion at baseline that is mild. [facility] Medical History Anxiety Depression, acute Diverticulosis Essential hypertension GERD (gastroesophageal reflux disease) Hyponatremia Macular degeneration Home Medications lorazepam 0.5 mg tablet 0.5 mg PO DAILY 12/10/13 [History Last Taken 12/28/15] vit C 250 mg-vit E 90 mg-zinc 40 mg-copper 1 kc-jpwnry-jkthbo capsule 1 ea PO DAILY 12/10/13 [History Last Taken 12/28/15] metoprolol tartrate 50 mg tablet 25 mg PO BID 01/10/14 [History Last Taken 12/29/15] amlodipine 5 mg tablet 2.5 mg PO DAILY 12/15/15 [History Last Taken 12/29/15] dexlansoprazole 60 mg capsule,biphase delayed release (Dexilant) 60 mg PO QDAY 04/16/18 [History Last Taken Unknown] losartan 50 mg tablet 50 mg PO DAILY 07/11/19 [History Last Taken Unknown] losartan 25 mg tablet 25 mg PO QHS 09/03/22 [History Last Taken Unknown] Allergy/AdvReac Type Severity Reaction Status Date / Time azithromycin Allergy Rash Verified 09/05/22 15:34 [From Zithromax Z-Gabino] bacitracin Allergy Rash Verified 09/05/22 15:34 [From Neosporin ([id number])] bacitracin zinc Allergy Rash Verified 09/05/22 15:34 [From Neosporin (gss-bnj-[id number])] fluconazole Allergy Rash Verified 09/05/22 15:34 iodine Allergy Rash Verified 09/05/22 15:34 ketoconazole Allergy Rash Verified 09/05/22 15:34 lactose Allergy Unknown Verified 09/05/22 15:34 neomycin sulfate Allergy Rash Verified 09/05/22 15:34 [From Neosporin ([id number])] polymyxin B Allergy Rash Verified 09/05/22 15:34 [From Neosporin ([id number])] promethazine Allergy Unknown Verified 09/05/22 15:34 hydrochlorothiazide AdvReac Severe hyponatremi Verified 09/05/22 15:34 a IVP DYE Allergy Unknown Uncoded 09/05/22 15:34 Family History Mother CVA (cerebral vascular accident) Father CVA (cerebral vascular accident) Brother Hypertension Surgical History History of cholecystectomy History of hip surgery Social History Smoking Status: Never smoker alcohol intake: never substance use type: does not use ROS ROS ED ROS Narrative Past medical history: Reviewed, history of dehydration history of hypertension, history of depression and history of Medications: Reviewed Social history: Lives alone Review of systems: All systems negative except as indicated General: No fever. Generalized weakness Eyes: No visual changes ENT: No upper airway congestion, normal voice Neck: No neck pain Cardiovascular: No chest pain Respiratory: No shortness of breath or cough Gastrointestinal: No abdominal pain, nausea vomiting or diarrhea. She has decreased p.o. intake. Genitourinary: No dysuria Musculoskeletal: Denies myalgias no difficulty with ambulation Skin: No rash Neurological: No memory loss, confusion or any focal weakness Psych: Admits to being anxious. She does not want anything for this today Hematologic: No easy bleeding or easy bruising EXAM Physical Exam Narrative Exam Narrative: Physical exam General: Patient appears chronically Head: Normocephalic, Atraumatic Eyes: Conjunctiva not pale ENT: Dry mucous membranes Neck: Supple, Nontender, No lymphadenopathy Cardiovascular: Regular rate, Regular rhythm Respiratory: No distress, CTA bilaterally Abdomen: Soft, Nontender, Nondistended Back: Nontender, Normal Inspection. Negative for: CVA tenderness Extremities: Nontender, No edema Skin: Normal color, No rash Neurological: Alert, she is oriented to person and place, she knows the year but not the month or date. Normal Strength, Normal Sensation Psychological: Anxious appear Const Vital Signs: 09/05/22 15:29 09/05/22 16:48 09/05/22 17:16 Temperature 97.5 F L Temperature Source Temporal Pulse Rate 95 Respiratory Rate 18 16 Respiratory Effort Normal Non-Labored Respiratory Pattern Normal Blood Pressure 147/80 H Blood Pressure Mean 102 Pulse Ox 100 Oxygen Delivery Method Room Air MDM MDM MDM Narrative Medical decision making narrative: Patient's work-up is unremarkable however it is clear that she cannot go home. I will admit her for placement I talked to social work at this time she is not able to be discharged she is too weak. Lab Data Labs: Laboratory Results - last 24 hr 09/05/22 09/05/22 09/05/22 18:08 18:08 18:47 WBC 13.7 H RBC 4.00 L Hgb 13.0 Hct 38.3 MCV 95.8 MCH 32.5 H MCHC 33.9 RDW Std Deviation 43.1 RDW Coeff of Pranav 12.2 Plt Count 293 MPV 10.4 Immature Gran % (Auto) 0.800 Neut % (Auto) 85.7 H Lymph % (Auto) 7.7 L [place] % (Auto) 5.4 Eos % (Auto) 0.1 Baso % (Auto) 0.3 Absolute Neuts (auto) 11.8 H Absolute Lymphs (auto) 1.06 Nucleated RBC % 0 Sodium 137 Potassium 3.5 Chloride 103 Carbon Dioxide 23.0 Anion Gap 11 BUN 15 Creatinine 0.70 Estim Creat Clear Calc 35.26 Est GFR (MDRD) Af Amer 102 Est GFR (MDRD) Non-Af 84 BUN/Creatinine Ratio 21.3 H Glucose 138 H Calcium 10.8 H Total Bilirubin 0.90 AST 36 ALT 49 Alkaline Phosphatase 109 Total Protein 8.0 Albumin 3.2 Globulin 4.8 H Albumin/Globulin Ratio 0.7 L Urine Color Yellow Urine Clarity Clear Urine pH 5.0 Ur Specific [place] 1.025 Urine Protein 30 H Urine Glucose (UA) Normal Urine Ketones 15 H Urine Occult Blood 10 H Urine Nitrite Negative Urine Bilirubin Negative Urine Urobilinogen 1 H Ur Leukocyte Esterase 100 H Discharge Plan Triage Chief Complaint: Weakness ED Provider: Khoa Escobar Dx/Rx/DC Orders Clinical Impression: Weakness, Dehydration, Falls Prescriptions: No Action dexlansoprazole [Dexilant] 60 mg capsule,biphase delayed releas 60 mg PO QDAY losartan 50 mg tablet 50 mg PO DAILY Label Comments: BLOOD PRESSURE lorazepam 0.5 MG tablet 0.5 mg PO DAILY Label Comments: ANXIETY vit C,S-Hs-vijvq-lutein-zeaxan 1 EACH capsule 1 ea PO DAILY Label Comments: SUPPLEMENT metoprolol tartrate 50 MG tablet 25 mg PO BID Label Comments: BLOOD BPRESSURE/HEART RATE amlodipine 5 MG tablet 2.5 mg PO DAILY Label Comments: BLOOD PRESSURE losartan 25 mg Tablet 25 mg PO QHS Primary Care Provider: Florida Coleman Referrals: Florida Coleman MD [Primary Care Provider] - Disposition Disposition: Acute Care Hospital [facility]
--- NOTE | 2022-09-05 18:19 | CM.ED ---
SW Note Referral Source: MD Referral Reason: Discharge Planning SW met with patient and her 2 friends. Friends will care for patient's 2 dogs and 3 cats. Patient has been falling and the friends were in agreement with patient coming into the hospital for PT evaluation and SW involvement. Patient said that she will agree to come into the hospital but nowhere else. SW encouraged patient to take each day day by day. SW advised that a physical therapy evaluation will help assess what level of care patient needs. Patient voices that she doesn't want to go anywhere else beside the hospital (meaning SNF). SW provided support to patient and her friends regarding the process of how PT will evaluate and let patient know what their recommendations are involving patient. Plan: Admit to Acute [facility]
[2022-09-05 18:28] LABS: Absolute Lymphocyte Count 1.06 X10^3/uL (0.83-4.51); Absolute Neutrophil Count 11.8 X10^3/uL (2.0-7.7); Basophil# 0.04 X10^3/uL; Basophil% 0.3 % (0-1); Eosinophil# 0.02 X10^3/uL; Eosinophils% 0.1 % (0-5); Hematocrit 38.3 % (37-47); Lymphocyte # 1.06 X10^3/ul (0.83-4.51); Lymphocyte % 7.7 % (19-41); Mean Corp Hgb Conc 33.9 g/dL (32-36); Mean Corpuscular Hgb 32.5 pg (27.0-32.0); Mean Corpuscular Volume 95.8 fL (81-99); Mean Platelet Vol. 10.4 fl (6.2-12.0); Monocyte# 0.74 X10^3/uL; Monocyte% 5.4 % (0-10); NRBC Flagged by Analyzer 0 % (0-5); Neutrophil # 11.75 X10^3/uL (2.7-7.7); Neutrophil % 85.7 % (47-70); Platelet Count 293 K/mm3 (150-450); RBC Distribution Width CV 12.2 % (11.6-14.6); RBC Distribution Width SD 43.1 fl (35.1-43.9); White Blood Count 13.7 K/mm3 (4.4-11.0)
[2022-09-05 18:48] LABS: ALB/GLOB Ratio 0.7 RATIO (0.9-2.4); AST(SGOT) 36 U/L (15-37); Alanine Aminotransfer ALT/SGPT 49 U/L (13-56); Albumin, Serum 3.2 g/dL (3.2-5.0); Alkaline Phosphatase 109 U/L (45-117); Anion Gap 11 (5-15); BUN 15 mg/dL (7-18); BUN/Creat Ratio 21.3 RATIO (10-20); Calcium,Total 10.8 mg/dL (8.5-10.1); Chloride 103 mmol/L (98-107); EST Glomerular Filtration Rate 84 mL/min (>60); Est Glom Filt Rate - Afr Amer 102 mL/min (>60); Estimated Creatinine Clearance 35.26 ml/min; Globulin 4.8 g/dL (2.2-4.2); Glucose 138 mg/dL (74-106); Potassium 3.5 mmol/L (3.5-5.1); Sodium Level 137 mmol/L (136-145)
[2022-09-05 18:56] LABS: Red Blood Cells-Urine 0 SEEN /hpf (0-5); Squamous Epithelial Cells - UA 0 SEEN /hpf (5-10)
[2022-09-05 19:01] LABS: Color, Urine Yellow (Yellow); Glucose, Dipstick Normal (Normal); Ketone-Dipstick 15 mg/dl (Negative); Leukocyte Esterase-Dipstick 100 /ul (Negative); Nitrite-Dipstick Negative (Negative); Occult Blood-Urine 10 /ul (Negative); Protein-Dipstick 30 mg/dl (Negative); Specific Gravity, Urine 1.025 (1.002-1.030); Urine Bilirubin Dipstick Negative (Negative); Urine Clarity Clear (Clear); Urine Urobilinogen 1 mg/dl (Normal)
--- NOTE | 2022-09-05 19:01 | HP.PCM.HOS_ITS ---
HPI - General General Date of Admission: 09/05/22 Date of Service: 09/05/22 Chief Complaint: weakness HPI Narrative MANISHA AVELAR, is a 82 F with a PMH as outlined who presents via the ED on 09/05/2022 with a complaint of generalised weakness. She was seen in the ED a couple of days ago, and was sent home. She had complained of multiple falls then. She went home and has had ~ 5 falls since then. She lives alone and is unable to care for herself. SHe has also been getting gradually confused, and there are concerns for dementia. She had no fever, chills, cough, chest pain, palpitations, dizziness, nausea, vomiting or diarrhea. Review of systems was otherwise negative. In one of her falls she did hit her head against an object and sustained a superficial laceration on her posterior scalp. Vitals were temp of 97.5F, MT of 95, BP of 147/80 and RR of 18. She was saturating at 100% on room air. CBC showed hb of 13, wbc of 13.7 and platelets of 293. Chemistry was remarkable for calcium of 10.8, but was otherwise unremarkable. Urinalysis showed 100 leucocyte esterase; urine wbc and bacteria were pending. She is being admitted to be managed for debility due to frequent falls and worsening dementia as well as probable UTI. [facility] Medical History (Updated 09/05/22 @ 19:[address] Lupe Wright MD) Anxiety Depression, acute Diverticulosis Essential hypertension GERD (gastroesophageal reflux disease) Hyponatremia Macular degeneration Home Medications lorazepam 0.5 mg tablet 0.5 mg PO DAILY 12/10/13 [History Last Taken 12/28/15] vit C 250 mg-vit E 90 mg-zinc 40 mg-copper 1 qi-kvaaus-snhyrz capsule 1 ea PO DAILY 12/10/13 [History Last Taken 12/28/15] metoprolol tartrate 50 mg tablet 25 mg PO BID 01/10/14 [History Last Taken 12/29/15] amlodipine 5 mg tablet 2.5 mg PO DAILY 12/15/15 [History Last Taken 12/29/15] dexlansoprazole 60 mg capsule,biphase delayed release (Dexilant) 60 mg PO QDAY 04/16/18 [History Last Taken Unknown] losartan 50 mg tablet 50 mg PO DAILY 07/11/19 [History Last Taken Unknown] losartan 25 mg tablet 25 mg PO QHS 09/03/22 [History Last Taken Unknown] Allergy/AdvReac Type Severity Reaction Status Date / Time azithromycin Allergy Rash Verified 09/05/22 15:34 [From Zithromax Z-Gabino] bacitracin Allergy Rash Verified 09/05/22 15:34 [From Neosporin ([id number])] bacitracin zinc Allergy Rash Verified 09/05/22 15:34 [From Neosporin ([id number])] fluconazole Allergy Rash Verified 09/05/22 15:34 iodine Allergy Rash Verified 09/05/22 15:34 ketoconazole Allergy Rash Verified 09/05/22 15:34 lactose Allergy Unknown Verified 09/05/22 15:34 neomycin sulfate Allergy Rash Verified 09/05/22 15:34 [From Neosporin ([id number])] polymyxin B Allergy Rash Verified 09/05/22 15:34 [From Neosporin ([id number])] promethazine Allergy Unknown Verified 09/05/22 15:34 hydrochlorothiazide AdvReac Severe hyponatremi Verified 09/05/22 15:34 a IVP DYE Allergy Unknown Uncoded 09/05/22 15:34 Family History Mother CVA (cerebral vascular accident) Father CVA (cerebral vascular accident) Brother Hypertension Surgical History History of cholecystectomy History of hip surgery Social History Smoking Status: Never smoker alcohol intake: never substance use type: does not use ROS Constitutional Constitutional: Reports fatigue, malaise and weakness; Denies anorexia, chills or fever(s) Eyes Eyes: Denies change in vision ENT HEENT: Denies dysphagia, headache(s) or sore throat Cardiovascular Cardiovascular: Denies chest pain, dyspnea on exertion, edema, lightheadedness, orthopnea, palpitations, rapid heart rate or syncope Respiratory/Chest Respiratory/Chest: Denies cough, dyspnea, productive cough, shortness of breath at rest or shortness of breath with exertion Gastrointestinal Gastrointestinal: Denies abdominal pain, constipation, diarrhea, nausea or vomiting Genitourinary Genitourinary: Denies burning urination, dysuria or urinary frequency Musculoskeletal Musculoskeletal: Denies arthralgias Neurologic Neurologic: Reports confusion; Denies dizziness, focal weakness, headache(s), numbness, seizure-like activity or syncope Psychiatric Psychiatric: Denies anxiety Vital Signs Vital Signs Vital Signs: 09/05/22 15:29 09/05/22 16:48 09/05/22 17:16 Temperature 97.5 F L Temperature Source Temporal Pulse Rate 95 Respiratory Rate 18 16 Respiratory Effort Normal Non-Labored Respiratory Pattern Normal Blood Pressure 147/80 H Blood Pressure Mean 102 Pulse Ox 100 Oxygen Delivery Method Room Air Weight Weight: 118 lb Body Mass Index (BMI) 20.9 Physical Exam Const alert and no apparent distress Constitutional Narrative: frail, episodic confusion General Appearance: cooperative Orientation / Consciousness: confused HEENT normocephalic, head/scalp atraumatic and hearing grossly normal bilaterally HEENT Narrative: dry oral mucosa Mouth: moist mucous membranes abnormal Eyes PERRL, EOMs intact bilaterally and conjunctivae normal Neck no lymphadenopathy and supple Resp normal respiratory effort, no retractions, no use of accessory muscles and clear to auscultation bilaterally Cardio regular rate, regular rhythm, S1 normal heart sound, S2 normal heart sound and no murmurs GI normal to inspection, nondistended, normoactive bowel sounds, soft to palpation, non-tender and non-distended Extremity normal to inspection, full ROM and no clubbing, cyanosis or edema Skin Skin Narrative: superficial laceration in posterior scalp, with dried blood Neuro CN's II-XII intact bilaterally, moves all extremities and no focal motor def icits Neuro Narrative: confused Sensorium / Orientation: awake and alert Motor Exam: strength 5/5 throughout Psych Psych Narrative: flat affect Results Lab / Micro Data Result Diagrams: 09/05/22 18:08 09/05/22 18:08 Labs: Laboratory Results - last 24 hr 09/05/22 18:08: WBC 13.7 H, RBC 4.00 L, Hgb 13.0, Hct 38.3, MCV 95.8, MCH 32.5 H , MCHC 33.9, RDW Std Deviation 43.1, RDW Coeff of Pranav 12.2, Plt Count 293, MPV 10.4, Immature Gran % (Auto) 0.800, Neut % (Auto) 85.7 H, Lymph % (Auto) 7.7 L, [place] % (Auto) 5.4, Eos % (Auto) 0.1, Baso % (Auto) 0.3, Absolute Neuts (auto) 11.8 H, Absolute Lymphs (auto) 1.06, Nucleated RBC % 0 09/05/22 18:08: Sodium 137, Potassium 3.5, Chloride 103, Carbon Dioxide 23.0, Anion Gap 11, BUN 15, Creatinine 0.70, Estim Creat Clear Calc 35.26, Est GFR ( MDRD) Af Amer 102, Est GFR (MDRD) Non-Af 84, BUN/Creatinine Ratio 21.3 H, Glucose 138 H, Calcium 10.8 H, Total Bilirubin 0.90, AST 36, ALT 49, Alkaline Phosphatase 109, Total Protein 8.0, Albumin 3.2, Globulin 4.8 H, Albumin/Globulin Ratio 0.7 L Assessment & Plan Assessment/Plan (1) Mild dehydration: (2) Debility: (3) Falls: PLAN: Plan #Debility due to frequent falls * admit to med surg * fell at least 5 times over the last couple of days and hit her head * Was also seen in the ED 2 days ago for similar complaint and had been falling at that time 2. * CT of the brain done 2 days ago showed no acute intracranial pathology. * Hydrate gently with IV fluids normal saline at 125 cc/h for 2 bags * PT OT consult. Fall precautions. * Will benefit from placement. * #Hypercalcemia * Calcium is 10.8. Albumin is 3.2 so corrected calcium will be just around 11.2. * Likely due to dehydration. Hydrate with fluids and trend. I expect will improve with hydration. * #Probable UTI * Urinalysis showed 200 leukocyte esterase. Urine WBC and bacteria pending. * In light of patient's confusion we will start her empirically on IV ceftriaxone for UTI. We will get urine cultures and adjust antibiotics as needed. * #Probable early onset dementia * Patient has apparently been getting more confused and this has been worsening. Family is concerned that she has dementia and this may be worsening. * Will need follow-up with PCP once acute confusion is over to be assessed for dementia. * #Hypertension: On losartan and metoprolol. DVT prophylaxis: SCDs CODE STATUS: * unable to tell due to her confusion. * Her friend and sister in law who were with her said she had written advanced directives which were in her house, and they would bring it in tomorrow. Will enter code status tentatively as full code for now, pending evaluation of advanced directive paperwork. * Total face to face discussion 16 mins * Note: med rec still not completed so could not be done at time of admission. Charges/Coding Visit Charges OBSV E&M: 39583 Initial observation care L3 Procedures Hospitalists Procedures: 06864 Advncd Care Plan 30 Min
[2022-09-05 19:16] LABS: Mucous, Urine RARE /hpf (<or=2+); White Blood Cells 0-5 SEEN /hpf (0-5)
[2022-09-05 19:17] LABS: Bacteria RARE /hpf (None Seen)
[2022-09-05] MEDS: LORazepam 2 MG/ML Syringe 0.5 MG IV (21:21)
[2022-09-05] MEDS: 0.9% Saline Lock 10 ML Syringe IV (21:22)
[2022-09-05] MEDS: Ceftriaxone 1 GM/50 ML BAG IV (22:00)
[2022-09-05] MEDS: 0.9% Normal Saline 1,000 ML 125 ML IV (22:00)
[2022-09-05] MEDS: Haloperidol Lactate 5 MG/ML Vial 2 MG IM (23:07)
[2022-09-06] VITALS (12 sets, daily range): BP systolic 122–133; BP diastolic 66–72; PULSE 74–120; RESP 18–20; TEMP 36.4–37.3; O2SAT 95–98
[2022-09-06] MEDS: Haloperidol Lactate 5 MG/ML Vial 3 MG IM (00:27)
[2022-09-06 06:03] LABS: Absolute Lymphocyte Count 1.03 X10^3/uL (0.83-4.51); Absolute Neutrophil Count 10.3 X10^3/uL (2.0-7.7); Basophil# 0.03 X10^3/uL; Basophil% 0.2 % (0-1); Eosinophil# 0.01 X10^3/uL; Eosinophils% 0.1 % (0-5); Hematocrit 28.9 % (37-47); Hemoglobin 9.8 g/dL (12.0-15.0); Lymphocyte # 1.03 X10^3/ul (0.83-4.51); Lymphocyte % 8.4 % (19-41); Mean Corp Hgb Conc 33.9 g/dL (32-36); Mean Corpuscular Hgb 32.2 pg (27.0-32.0); Mean Corpuscular Volume 95.1 fL (81-99); Monocyte# 0.78 X10^3/uL; Monocyte% 6.4 % (0-10); NRBC Flagged by Analyzer 0 % (0-5); Neutrophil # 10.29 X10^3/uL (2.7-7.7); Neutrophil % 84.2 % (47-70); Platelet Count 238 K/mm3 (150-450); RBC Distribution Width CV 12.4 % (11.6-14.6); RBC Distribution Width SD 43.1 fl (35.1-43.9); Red Blood Count 3.04 M/mm3 (4.2-5.4); White Blood Count 12.2 K/mm3 (4.4-11.0)
[2022-09-06 06:42] LABS: ALB/GLOB Ratio 0.6 RATIO (0.9-2.4); AST(SGOT) 24 U/L (15-37); Alanine Aminotransfer ALT/SGPT 35 U/L (13-56); Albumin, Serum 2.2 g/dL (3.2-5.0); Alkaline Phosphatase 75 U/L (45-117); Anion Gap 7 (5-15); BUN 13 mg/dL (7-18); BUN/Creat Ratio 21.3 RATIO (10-20); Calcium,Total 9.1 mg/dL (8.5-10.1); Chloride 107 mmol/L (98-107); Creatinine, Serum 0.61 mg/dL (0.55-1.02); EST Glomerular Filtration Rate 100 mL/min (>60); Est Glom Filt Rate - Afr Amer 120 mL/min (>60); Estimated Creatinine Clearance 29.94 ml/min; Globulin 3.4 g/dL (2.2-4.2); Glucose 116 mg/dL (74-106); Potassium 3.1 mmol/L (3.5-5.1); Protein, Total 5.6 g/dL (6.4-8.2); Sodium Level 136 mmol/L (136-145)
[2022-09-06] MEDS: Potassium Chloride Oral Tablet 20 MEQ 40 MEQ PO (08:15)
[2022-09-06] MEDS: LORazepam 0.5 MG Tablet PO (08:16)
--- NOTE | 2022-09-06 10:46 | CASEMGMT ---
SW went to patient's room. Patient is currently confused and cannot make any decisions for herself. Patient's sister in law, Lesly is present with patient. Patient was sleeping. MORGAN introduced self and role at [facility]. Lesly said they have all talked and they would like her to go to [place]. MORGAN explained that [place] is assisted living (AL) and right now it sounds like patient needs skilled nursing for rehab before AL. Lesly said then it would be [facility]. MORGAN asked if patient has a Healthcare Power of Licensed Mental Health Counselor. Lesly said she does not know. Lesly said that she and 2 other people are patient's power of banking attorney. Lesly did not know if this was healthcare power of banking attorney or general power of banking attorney. Lesly said she would have to get a copy from the banking attorney. MORGAN asked Lesly to please do this as it may help with who can make decisions for patient when she is not able to. MORGAN then asked Lesly if patient has any children and she does not. MORGAN asked if patient has any siblings. Patient has a brother, but they do not have any sort of relationship. MORGAN explained that legally patient's brother would be her healthcare decision maker unless the power of banking attorney papers Lesly spoke about include healthcare decisions. Lesly does not have any contact information for patient's brother. However, his name is Demario Celestin. MORGAN asked Lesly again to see if she can obtain a copy of the power of banking attorney papers from the banking attorney and bring them to [facility]. Lesly said she would do this. MORGAN will start referral process to [facility]. MORGAN will check back again to see if Lesly obtained a copy of the power of banking attorney papers. MORGAN will also check back later to see if patient's confusion clears up enough to find out who she would want to make medical decisions for her. Maliha Fung MSW UMAIR
--- NOTE | 2022-09-06 10:56 | NURSING ---
Sister in law of pt is at bedside and updated on pt status and condition and morning/night for nursing staff. Family member verbalizes that she would like pt to go to [place]- states that she has not spoke with anyone on the social work team. Maliha and Michelle both updated on this for case management/social work to speak with pt family regarding DC planning
--- NOTE | 2022-09-06 12:02 | PCM.PN.HOSP ---
Subjective Subjective Agitation through the night was given IV Haldol and Ativan. Very somnolent this morning however does awaken but markedly confused and oriented only to self and present of the [place]. Denies any pain other than her chronic low back pain. Objective Data Objective Data Vital Signs: Vital Signs Temp Pulse Resp BP Pulse Ox O2 Del Method 97.6 F L 114 H 20 H 132/66 H 96 Room Air 09/06/22 09:00 09/06/22 09:00 09/06/22 09:00 09/06/22 09:00 09/06/22 09:00 09/06/22 09:27 Oxygen Delivery Method Room Air Weight: 44.5 kg Body Mass Index (BMI) 17.9 Intake & Output: Intake and Output for Last 24 Hours 09/04/22 09/05/22 09/06/22 23:59 23:59 23:59 Intake Total 550 / 550 1120 / 1120 Output Total 0 / 0 Balance 550 / 550 1120 / 1120 Lab / Micro Data Result Diagrams: 09/06/22 05:55 09/06/22 05:55 Labs: Laboratory Results - last 24 hr 09/05/22 18:08: WBC 13.7 H, RBC 4.00 L, Hgb 13.0, Hct 38.3, MCV 95.8, MCH 32.5 H, MCHC 33.9, RDW Std Deviation 43.1, RDW Coeff of Pranav 12.2, Plt Count 293, MPV 10.4, Immature Gran % (Auto) 0.800, Neut % (Auto) 85.7 H, Lymph % (Auto) 7.7 L, [place] % (Auto) 5.4, Eos % (Auto) 0.1, Baso % (Auto) 0.3, Absolute Neuts (auto) 11.8 H, Absolute Lymphs (auto) 1.06, Nucleated RBC % 0 09/05/22 18:08: Sodium 137, Potassium 3.5, Chloride 103, Carbon Dioxide 23.0, Anion Gap 11, BUN 15, Creatinine 0.70, Estim Creat Clear Calc 35.26, Est GFR (MDRD) Af Amer 102, Est GFR (MDRD) Non-Af 84, BUN/Creatinine Ratio 21.3 H, Glucose 138 H, Calcium 10.8 H, Total Bilirubin 0.90, AST 36, ALT 49, Alkaline Phosphatase 109, Total Protein 8.0, Albumin 3.2, Globulin 4.8 H, Albumin/Globulin Ratio 0.7 L 09/05/22 18:47: Urine Color Yellow, Urine Clarity Clear, Urine pH 5.0, Ur Specific [place] 1.025, Urine Protein 30 H, Urine Glucose (UA) Normal, Urine Ketones 15 H, Urine Occult Blood 10 H, Urine Nitrite Negative, Urine Bilirubin Negative, Urine Urobilinogen 1 H, Ur Leukocyte Esterase 100 H, Urine RBC 0 SEEN, Urine WBC 0-5 SEEN, Ur Squamous Epith Cells 0 SEEN, Urine Bacteria RARE, Urine Mucus RARE 09/06/22 05:55: WBC 12.2 H, RBC 3.04 L, Hgb 9.8 L, Hct 28.9 L, MCV 95.1, MCH 32.2 H, MCHC 33.9, RDW Std Deviation 43.1, RDW Coeff of Pranav 12.4, Plt Count 238, MPV 10.0, Immature Gran % (Auto) 0.700, Neut % (Auto) 84.2 H, Lymph % (Auto) 8.4 L, [place] % (Auto) 6.4, Eos % (Auto) 0.1, Baso % (Auto) 0.2, Absolute Neuts (auto) 10.3 H, Absolute Lymphs (auto) 1.03, Nucleated RBC % 0 09/06/22 05:55: Sodium 136, Potassium 3.1 L, Chloride 107, Carbon Dioxide 22.0, Anion Gap 7, BUN 13, Creatinine 0.61, Estim Creat Clear Calc 29.94, Est GFR (MDRD) Af Amer 120, Est GFR (MDRD) Non-Af 100, BUN/Creatinine Ratio 21.3 H, Glucose 116 H, Calcium 9.1, Total Bilirubin 0.60, AST 24, ALT 35, Alkaline Phosphatase 75, Total Protein 5.6 L, Albumin 2.2 L, Globulin 3.4, Albumin/Globulin Ratio 0.6 L Micro: Microbiology 09/06/22 08:30 Nasal Secretion SARS-CoV-2 Antigen (Rapid) - Final Physical Exam Const no apparent distress Constitutional Narrative: Thin, elderly, white female, patient sleeping upon my arrival however does awaken to verbal and tactile stimulus. Oriented to self and vice president investor relations but not to place or time, appears comfortable and nontoxic HEENT head/scalp atraumatic and moist oral mucous membranes HEENT Narrative: Dentition is poor, Mallampati is 2, no thrush, temporal wasting Head and Scalp: normocephalic Resp normal respiratory effort, no retractions, no use of accessory muscles and clear to auscultation bilaterally Auscultation: Negative for crackles, rales, rhonchi or wheezes Cardio regular rate, regular rhythm, S1 normal heart sound, S2 normal heart sound, no murmurs, no rub, no gallops and no clicks GI normal to inspection, nondistended, normoactive bowel sounds, soft to palpation and non-tender Palpation: Negative for tender, guarding or hernia Extremity no clubbing, cyanosis or edema Extremity Narrative: 2+ pedal pulses, decreased muscle mass Neuro CN's II-XII intact bilaterally, moves all extremities and no focal motor deficits Neuro Narrative: Marked generalized weakness with no focal deficits-proximal greater than distal Speech: speech normal Psych Psych Narrative: Affect is somewhat flat Assessment & Plan Assessment/Plan (1) Falls: (2) Debility: (3) Mild dehydration: (4) Moderate malnutrition: PLAN: Plan Frequent falls with debility -Patient's balance and strength seems to be worsening as she has had multiple falls over the last several days -Recent visit to the emergency department secondary to falling -CT of the head done on previous ED visit in the past week was unremarkable -Hydration seems to be improved therefore we will discontinue IV fluids encourage p.o. intake -PT/OT consultations pending -Case management consulted for placement at discharge Hypercalcemia -Resolved -Likely due to dehydration Suspected UTI -UA has finalized and shows no significant white blood cells and only trace bacteria therefore I do doubt ongoing urinary tract infection -We will discontinue IV ceftriaxone -No culture was able to be obtained prior to antibiotics being initiated -Discontinue culture at this time given UA results Suspected cognitive impairment -Patient currently only oriented to self and vice president investor relations she is aware that she is at a hospital but unable to tell me which hospital and was unable to tell me what month or year it was -Anticipate the patient does have some dementia -Currently has Haldol and Ativan on board which would complicate Mini Mental and therefore we will try this tomorrow if cognition is better and patient is not medicated -Patient did demonstrate some sundowning last evening therefore we will start some low-dose Risperdal 0.5 mg at at bedtime -Avoid all IV medications for agitation/sundowning Suspected moderate malnutrition -Dietitian consult -Start supplements Hypertension -Continue home losartan -Continue home metoprolol -Continue home amlodipine GERD -Continue PPI DVT prophylaxis -SCDs -Lovenox added CODE STATUS -Unclear at this time and will need further input as we are currently awaiting healthcare power of compliance investigator paperwork and patient remains unable to make her own decisions Charges/Coding Visit Charges OBSV E&M: 13546 Initial observation care L2
--- NOTE | 2022-09-06 13:30 | CASEMGMT ---
MORGAN spoke with Lesly and asked if she was able to talk with the workers compensation attorney yet. Lesly said another friend is coming in to sit with patient and she was going to talk with workers compensation attorney. MORGAN thanked her for checking into this. Maliha BLCOK
[2022-09-06] MEDS: Ensure Plus High Protein 120 ML LIQUID PO ×3 (14:18→20:15)
--- NOTE | 2022-09-06 14:44 | CASEMGMT ---
Pt is confused and unable to complete GOLD form. Call to pt's [id number](only contact listed), Lesly Womack, to complete GOLD form, explanation done-voices understanding, and gives verbal ok for signature via phone. Lesly voicejennie no further questions/concerns/needs and states has been in contact with Nancy MORA regarding d/c plan. Mat GOODWIN CM
[2022-09-06] MEDS: Acetaminophen 500 MG Tablet 1000 MG PO (17:08)
[2022-09-06] MEDS: RisperiDONE 0.5 MG Tablet PO (20:12)
[2022-09-06] MEDS: Metoprolol Tartrate 25 MG Tablet PO (20:12)
[2022-09-06] MEDS: Losartan Potassium 25 MG Tablet PO (20:12)
[2022-09-07] VITALS (7 sets, daily range): BP systolic 137–148; BP diastolic 72–80; PULSE 98–117; RESP 18; TEMP 36.6–36.7; O2SAT 96–98
[2022-09-07] MEDS: Acetaminophen 500 MG Tablet 1000 MG PO (01:10)
[2022-09-07] MEDS: Enoxaparin 30 MG/0.3 ML Syringe SC (04:55)
[2022-09-07 05:09] LABS: Absolute Neutrophil Count 8.7 X10^3/uL (2.0-7.7); Basophil# 0.05 X10^3/uL; Basophil% 0.4 % (0-1); Eosinophil# 0.13 X10^3/uL; Eosinophils% 1.1 % (0-5); Hematocrit 36.3 % (37-47); Hemoglobin 12.2 g/dL (12.0-15.0); Lymphocyte % 15.7 % (19-41); Mean Corp Hgb Conc 33.6 g/dL (32-36); Mean Corpuscular Hgb 31.9 pg (27.0-32.0); Mean Corpuscular Volume 94.8 fL (81-99); Mean Platelet Vol. 9.7 fl (6.2-12.0); Monocyte# 0.68 X10^3/uL; Monocyte% 5.9 % (0-10); NRBC Flagged by Analyzer 0 % (0-5); Neutrophil # 8.74 X10^3/uL (2.7-7.7); Neutrophil % 76.4 % (47-70); Platelet Count 302 K/mm3 (150-450); RBC Distribution Width CV 12.5 % (11.6-14.6); RBC Distribution Width SD 43.6 fl (35.1-43.9); Red Blood Count 3.83 M/mm3 (4.2-5.4); White Blood Count 11.5 K/mm3 (4.4-11.0)
[2022-09-07 05:47] LABS: Anion Gap 9 (5-15); BUN 17 mg/dL (7-18); BUN/Creat Ratio 23.6 RATIO (10-20); Calcium,Total 10.1 mg/dL (8.5-10.1); Chloride 107 mmol/L (98-107); Creatinine, Serum 0.72 mg/dL (0.55-1.02); EST Glomerular Filtration Rate 82 mL/min (>60); Est Glom Filt Rate - Afr Amer 100 mL/min (>60); Estimated Creatinine Clearance 29.94 ml/min; Glucose 139 mg/dL (74-106); Phosphorus 2.5 mg/dL (2.5-4.9); Potassium 3.8 mmol/L (3.5-5.1); Sodium Level 136 mmol/L (136-145); Thyroid Stim Hormone (TSH) 2.31 uIU/mL (0.358-3.74)
--- NOTE | 2022-09-07 09:46 | CASEMGMT ---
MORGAN sent therapy notes to [facility]. MORGAN will talk with Lesly when she gets here. Maliha Fung YARDER OPERATOR UMAIR
[2022-09-07] MEDS: Pantoprazole Sodium 40 MG Tablet PO (10:03)
[2022-09-07] MEDS: Ensure Plus High Protein 120 ML LIQUID PO (10:03)
[2022-09-07] MEDS: Losartan Potassium 50 MG Tablet PO (10:03)
[2022-09-07] MEDS: Metoprolol Tartrate 25 MG Tablet PO (10:03)
--- NOTE | 2022-09-07 10:30 | CASEMGMT ---
MORGAN spoke with Lesly. Lesly did talk with the document review attorney and she is patient's Healthcare Power of Professional Healthcare Representative. She will get a copy later today as the document review attorney is out of the office this am. MORGAN thanked her for looking into this. Lesly told MORGAN that patient was to Lesly's brother. She promised her brother she would take care of patient. MORGAN let Lesly know the referral was sent to [facility] and just waiting on official acceptance. Maliha Fung SCALE CLERK UMAIR
--- NOTE | 2022-09-07 12:55 | CASEMGMT ---
Swati at [facility] said they can accept patient. However, they are having a hard time finding a skillable diagnosis. They inquired if patient does have Dementia. SW spoke with physician and it is felt patient does have Dementia. Physician will reflect this in her note. Plan: d/c to [facility] Maliha BLOCK
--- NOTE | 2022-09-07 14:32 | CASEMGMT ---
Patient was accepted at [facility]. SW notified patient, her friend, RN, and physician. Maliha Fung CONSUMER EXPERIENCE CONSULTANT UMAIR
--- NOTE | 2022-09-07 14:33 | TREXTCAR_ITS ---
Diet Diet Order/Speech Therapy: 09/06/22 12:15 Diet: Regular - General Food consistency:: Regular Liquid Consistency:: Regular/Thin Type of Dietary Supplement:: Magic Cup Dessert Is pt able to select menu?: No Diet Comments: vanilla magic cup with lunch and dinner; ensure pudding with breakfast Routine Orders/Code Status Suppository Frequency: Daily PRN O2 Frequency: PRN Keep PO Greater than or Equal to (%): 88 Code Status: Full Code Suggestions for Active Care Change Position every (hours): 2 Therapies Physical Therapy: Eval and Treat Occupational Therapy: Eval and Treat Problem/Diagnosis (1) Falls: Status: Acute Code(s): W19.XXXA - Unspecified fall, initial encounter (2) Debility: Status: Acute Code(s): R53.81 - Other malaise (3) Mild dehydration: Status: Acute Code(s): E86.0 - Dehydration (4) Moderate malnutrition: Status: Acute Code(s): E44.0 - Moderate protein-calorie malnutrition Allergies/Procedures Done in Hospital Allergies azithromycin [From Zithromax Z-Gabino] Allergy (Verified 09/05/22 15:34) Rash bacitracin [From Neosporin ([id number])] Allergy (Verified 09/05/22 15:34) Rash bacitracin zinc [From Neosporin ([id number])] Allergy (Verified 09/05/22 15:34) Rash fluconazole Allergy (Verified 09/05/22 15:34) Rash iodine Allergy (Verified 09/05/22 15:34) Rash ketoconazole Allergy (Verified 09/05/22 15:34) Rash neomycin sulfate [From Neosporin ([id number])] Allergy (Verified 09/05/22 15:34) Rash polymyxin B [From Neosporin ([id number])] Allergy (Verified 09/05/22 15:34) Rash promethazine Allergy (Verified 09/05/22 15:34) Unknown hydrochlorothiazide Adverse Reaction (Severe, Verified 09/05/22 15:34) hyponatremia IVP DYE Allergy (Uncoded 09/05/22 15:34) Unknown Procedures: None Type of Care/Length of Stay Estimated LOS: Convalescent Care Less Than 30 days Type of Care Needed: Skilled Rehab Potential: Fair Prognosis: Fair Additional Orders/Day of Discharge Day of Discharge: 09/07/22 Dietary and Speech Recommendations Dietitian Recommendations/Changes: Continue regular diet; will add magic cup w/ lunch and dinner and ensure pudding with breakfast as tolerated. Continue 120 ml ensure plus high protein 4 times per day w/ medpass as tolera pia. If PO remains poor and inadequate and weight continues to decline, will need to consider enteral nutrition support. Discharge Plan Admission Admit Date/Time: 09/05/22 19:10 Attending Provider: Vanna Silva Primary Care Provider: [place] Coleman Consulting Providers: Lupe Wright Discharge Orders/Prescriptions Prescriptions: No Action dexlansoprazole [Dexilant] 60 mg capsule,biphase delayed releas 60 mg PO QDAY losartan 50 mg tablet 50 mg PO DAILY Label Comments: BLOOD PRESSURE lorazepam 0.5 MG tablet 0.5 mg PO DAILY Label Comments: ANXIETY vit C,Z-Pv-stnex-lutein-zeaxan 1 EACH capsule 1 ea PO BID Label Comments: SUPPLEMENT metoprolol tartrate 50 MG tablet 25 mg PO BID Label Comments: BLOOD BPRESSURE/HEART RATE amlodipine 5 MG tablet 2.5 mg PO DAILY Label Comments: BLOOD PRESSURE losartan 25 mg Tablet 25 mg PO QHS Referrals / Follow Up: Florida Coleman MD [Primary Care Provider] -
--- NOTE | 2022-09-07 14:36 | DS.PCM_ITS ---
Providers Date of Admission: 09/05/22 Date of Discharge: 09/07/22 Primary Care Physician: Dr. Florida Coleman MD Reason For Visit: DEBILITY DUE TO FREQUENT FALLS Diagnosis Discharge Diagnosis (1) Falls: Status: Acute Code(s): W19.XXXA - Unspecified fall, initial encounter (2) Debility: Status: Acute Code(s): R53.81 - Other malaise (3) Mild dehydration: Status: Acute Code(s): E86.0 - Dehydration (4) Moderate malnutrition: Status: Acute Code(s): E44.0 - Moderate protein-calorie malnutrition Medications at Discharge Home Medications vit C 250 mg-vit E 90 mg-zinc 40 mg-copper 1 ld-seiygv-ncdwmn capsule 1 ea PO BID supplement 12/10/13 metoprolol tartrate 50 mg tablet 25 mg PO BID heart 01/10/14 dexlansoprazole 60 mg capsule,biphase delayed release (Dexilant) 60 mg PO QDAY gerd 04/16/18 losartan 50 mg tablet 50 mg PO DAILY bp 07/11/19 losartan 25 mg tablet 25 mg PO QHS bp 09/03/22 acetaminophen 500 mg tablet 1,000 mg PO Q8H PRN Pain 1-10 Or Fever #0 tabs 09/07/22 food supplemt, lactose-reduced 0.08 gram-1.5 kcal/mL oral liquid (Ensure Plus High Protein) 120 ml PO 4X/DAY #0 mL 09/07/22 risperidone 0.5 mg tablet 0.5 mg PO QHS #0 tabs 09/07/22 Hospital Course Operations None Procedures None Summary of Care Provided Minutes Spent on Discharge: 33 Hospital Course: Ms Barney is an 82-year-old white female who presented to emergency department on 09/05/2022 with a chief complaint of weakness. It was reported as generalized weakness and the patient had been seen in the emergency department approximately 2 days prior to admission and was sent home. At that time she had complained of multiple falls but was resistant to placement. She went home and since that point time sanches had approximately 5 falls. She had been living alone and was unable to care for herself. Caregivers and friends reported concern for worsening dementia and her safety at home. On one of her previous fall she did hit her head and sustained a superficial laceration on her posterior scalp which is healing well. Vitals at the time of presentation were temp of 97.5F, MI of 95, BP of 147/80 and RR of 18. She was saturating at 100% on room air. CBC showed hgb of 13, wbc of 13.7 and platelets of 293. Chemistry was remarkable for calcium of 10.8, but was otherwise unremarkable. A UA was performed and was not suggestive of urinary tract infection. On the night of admission she got fairly agitated and was given IV Haldol as well as Ativan and was fairly somnolent on 09/06/2022. Sedating medications were withheld and she was started on low-dose Risperdal to help with her sundowning at 0.5 mg nightly. This helped significantly and the patient had no significant sundowning on the night of 09/06/2022. Her thyroid was checked and found to be normal. After her mental status cleared with regards to the Haldol and the Ativan we performed a Mini- Mental status exam at which time she scored 14 out of 30 suggesting moderate dementia. We also did a clock drawing which was dramatically abnormal. Given her worsening dementia and inability to care for herself at home placement in a nursing facility was proceeded upon as physical and Occupational Therapy recommended that she would benefit from ongoing skilled therapy. The overall plan is to transition to dementia assisted living after she completes rehab. She was discharged to SNF on 09/07/2022 in stable condition. Discharge diagnoses: Frequent falls Generalized weakness Debility Moderate dementia Hypercalcemia-resolved Moderate malnutrition Hypertension GERD Medical Records Data Medical Nutrition Assessment Dietitian: Malnutrition Criteria Met Start: 09/06/22 14:16 Freq: Status: Active Protocol: Document 09/06/22 14:17 RMA (Rec: 09/06/22 14:17 RMA [id number]) Nutrition Malnutrition Evidence of Malnutrition Exists Yes Malnutrition (severe): Chronic Evidenced By Suboptimal Energy Intake ( Severe),Weight Loss (Severe), Physical Changes (Severe) Clinical Problem Chronic Disease or Condition Related Malnutrition Etiology Severe protein-calorie malnutrition in the context of chronic weakness/debility related to inadequate oral intake Signs/Symptoms as evidenced by BMI 17.9, weight loss~25% x past 12 months, PO meeting less than 50% estimated nutrition needs and visible muscle/fat wasting in the clavicle, orbitals, temporal areas Status Active Problem Recommendation Dietitian Recommendations/Changes Continue regular diet; will add magic cup w/ lunch and dinner and ensure pudding with breakfast as tolerated. Continue 120 ml ensure plus high protein 4 times per day w / medpass as tolerated. If PO remains poor and inadequate and weight continues to decline, will need to consider enteral nutrition support. Weight / BMI Weight Weight: 44.5 kg Body Mass Index (BMI) 17.9 ABG / Lab / Microbiology Data Result Diagrams: 09/07/22 04:57 09/07/22 04:57 Laboratory: Laboratory Results - last 24 hr 09/07/22 04:57: WBC 11.5 H, RBC 3.83 L, Hgb 12.2, Hct 36.3 L, MCV 94.8, MCH 31.9, MCHC 33.6, RDW Std Deviation 43.6, RDW Coeff of Pranav 12.5, Plt Count 302, MPV 9.7, Immature Gran % (Auto) 0.500, Neut % (Auto) 76.4 H, Lymph % (Auto) 15.7 L, [place] % (Auto) 5.9, Eos % (Auto) 1.1, Baso % (Auto) 0.4, Absolute Neuts (auto) 8.7 H, Absolute Lymphs (auto) 1.80, Nucleated RBC % 0 09/07/22 04:57: Sodium 136, Potassium 3.8, Chloride 107, Carbon Dioxide 20.0 L, Anion Gap 9, BUN 17, Creatinine 0.72, Estim Creat Clear Calc 29.94, Est GFR (MD RD) Af Amer 100, Est GFR (MDRD) Non-Af 82, BUN/Creatinine Ratio 23.6 H, Glucose 139 H, Calcium 10.1, Phosphorus 2.5, Magnesium 2.0, TSH 2.31 Microbiology: Microbiology 09/06/22 08:30 Nasal Secretion SARS-CoV-2 Antigen (Rapid) - Final D/C Instructions Discharge Diet: No restrictions Meaningful Use Info Meaningful Use Diagnoses (Choose all that apply): None applicable Discharge Plan Admission Admit Date/Time: 09/05/22 19:10 Primary Reason for Your Visit: Falls/weakness/confusion Attending Provider: Vanna Silva Primary Care Provider: Florida Coleman Consulting Providers: Lupe Wright Discharge Orders/Prescriptions Prescriptions: New acetaminophen 500 mg Tablet 1,000 mg PO Q8H PRN (Reason: Pain 1-10 Or Fever) Qty: 0 0RF risperidone 0.5 mg Tablet 0.5 mg PO QHS Qty: 0 0RF Ensure Plus High Protein 0.08 gram-1.5 kcal/mL Liquid 120 ml PO 4X/DAY Qty: 0 0RF Continued dexlansoprazole [Dexilant] 60 mg capsule,biphase delayed releas 60 mg PO QDAY losartan 50 mg tablet 50 mg PO DAILY Label Comments: BLOOD PRESSURE vit C,U-Zu-vcslk-lutein-zeaxan 1 EACH capsule 1 ea PO BID Label Comments: SUPPLEMENT metoprolol tartrate 50 MG tablet 25 mg PO BID Label Comments: BLOOD BPRESSURE/HEART RATE losartan 25 mg Tablet 25 mg PO QHS Discontinued lorazepam 0.5 MG tablet 0.5 mg PO DAILY Label Comments: ANXIETY amlodipine 5 MG tablet 2.5 mg PO DAILY Label Comments: BLOOD PRESSURE Referrals / Follow Up: Florida Coleman MD [Primary Care Provider] - Within 1 Month Disposition Disposition (needs filled in before D/C Order can be placed): Home, Self Care Charges/Coding Visit Charges OBSV E&M: 08964 Observation care discharge
--- NOTE | 2022-09-07 15:27 | PHA.DC.MR ---
Pharmacy Service has performed discharge medication reconciliation for this patient. The patient's discharge medication list was reviewed for discrepancies and discrepancies were resolved. Home Medications vit C 250 mg-vit E 90 mg-zinc 40 mg-copper 1 hl-rsuart-dkgtiu capsule 1 ea PO BID supplement 12/10/13 metoprolol tartrate 50 mg tablet 25 mg PO BID heart 01/10/14 dexlansoprazole 60 mg capsule,biphase delayed release (Dexilant) 60 mg PO QDAY gerd 04/16/18 losartan 50 mg tablet 50 mg PO DAILY bp 07/11/19 losartan 25 mg tablet 25 mg PO QHS bp 09/03/22 acetaminophen 500 mg tablet 1,000 mg PO Q8H PRN Pain 1-10 Or Fever #0 tabs 09/07/22 food supplemt, lactose-reduced 0.08 gram-1.5 kcal/mL oral liquid (Ensure Plus High Protein) 120 ml PO 4X/DAY #0 mL 09/07/22 risperidone 0.5 mg tablet 0.5 mg PO QHS #0 tabs 09/07/22
--- NOTE | 2022-09-07 15:42 | NURSING ---
report given to abigail chandler at [facility]
--- NOTE | 2022-09-07 15:43 | CASEMGMT ---
Discharge Bow Stapler This securities underwriter set up transportation for patient with [facility] belt picker time is 4:30pm. Nursing staff and Swati at [facility] made aware. D/c orders sent to [facility] via [facility]. Marcia ESCOBAR Belt Changer
== END 2022-09-07 14:38 | disposition skilled nursing facility (03) ==
LOC: ED 19:07 → MS3 19:53 → PCU 19:57
PROVIDERS: Admitting Provider Student in an Organized Health Care Education/Training Program; Emergency Provider Emergency Medicine; PCP Internal Medicine; Visit Provider Internal Medicine
DX: E86.0 Dehydration (principal); E44.0 Moderate protein-calorie malnutrition; S01.01XA Laceration without foreign body of scalp, initial encounter; K21.9 Gastro-esophageal reflux disease without esophagitis; R53.81 Other malaise; W19.XXXA Unspecified fall, initial encounter; I10 Essential (primary) hypertension; F03.B0 Unspecified dementia, moderate, without behavioral disturbance, psychotic disturbance, mood disturbance, and anxiety; Z60.2 Problems related to living alone; Z68.1 Body mass index [BMI] 19.9 or less, adult; F41.9 Anxiety disorder, unspecified; F32.A Depression, unspecified; Z79.899 Other long term (current) drug therapy; E83.52 Hypercalcemia; R29.6 Repeated falls
CPT/HCPCS: 36415; 80048; 80053; 81001; 83735; 84100; 84443; 85025; 87426; 96361; 96365; 96372; 96375; 97162; 97166; 97530; 97535; 97802; 99218; 99285; J7030; J7040; A4216; G0378

== ENCOUNTER → 2022-11-07 | Outpatient (REF) | payer MEDICARE, OTHER, SELFPAY ==
[2022-11-07 09:47] LABS: Anion Gap 8 (5-15); BUN 30 mg/dL (7-18); BUN/Creat Ratio 43.7 RATIO (10-20); Calcium,Total 9.9 mg/dL (8.5-10.1); Chloride 104 mmol/L (98-107); Creatinine, Serum 0.69 mg/dL (0.55-1.02); EST Glomerular Filtration Rate 87 mL/min (>60); Est Glom Filt Rate - Afr Amer 105 mL/min (>60); Glucose 89 mg/dL (74-106); Potassium 4.6 mmol/L (3.5-5.1); Sodium Level 137 mmol/L (136-145)
== END ==
LOC: OLS.WHLCAR 06:46
PROVIDERS: PCP Internal Medicine; Visit Provider Internal Medicine
DX: E83.52 Hypercalcemia (principal); F03.918 Unspecified dementia, unspecified severity, with other behavioral disturbance; R54 Age-related physical debility; R29.6 Repeated falls; M62.81 Muscle weakness (generalized); R26.2 Difficulty in walking, not elsewhere classified
CPT/HCPCS: 36415; 80048

== ENCOUNTER → 2022-11-14 | Outpatient (REF) | payer MEDICARE, OTHER, SELFPAY ==
[2022-11-14 09:16] LABS: Absolute Lymphocyte Count 1.26 X10^3/uL (0.83-4.51); Absolute Neutrophil Count 6.3 X10^3/uL (2.0-7.7); Basophil# 0.05 X10^3/uL; Basophil% 0.6 % (0-1); Eosinophil# 0.12 X10^3/uL; Eosinophils% 1.4 % (0-5); Hematocrit 29.4 % (37-47); Hemoglobin 9.5 g/dL (12.0-15.0); Lymphocyte # 1.26 X10^3/ul (0.83-4.51); Lymphocyte % 15.1 % (19-41); Mean Corp Hgb Conc 32.3 g/dL (32-36); Mean Corpuscular Hgb 31.9 pg (27.0-32.0); Mean Corpuscular Volume 98.7 fL (81-99); Mean Platelet Vol. 11.9 fl (6.2-12.0); Monocyte# 0.62 X10^3/uL; Monocyte% 7.4 % (0-10); NRBC Flagged by Analyzer 0 % (0-5); Neutrophil # 6.26 X10^3/uL (2.7-7.7); Platelet Count 260 K/mm3 (150-450); RBC Distribution Width CV 14.6 % (11.6-14.6); RBC Distribution Width SD 52.8 fl (35.1-43.9); Red Blood Count 2.98 M/mm3 (4.2-5.4); White Blood Count 8.4 K/mm3 (4.4-11.0)
[2022-11-14 09:47] LABS: Anion Gap 8 (5-15); BUN 23 mg/dL (7-18); BUN/Creat Ratio 31.9 RATIO (10-20); Calcium,Total 9.9 mg/dL (8.5-10.1); Chloride 105 mmol/L (98-107); Creatinine, Serum 0.72 mg/dL (0.55-1.02); EST Glomerular Filtration Rate 82 mL/min (>60); Est Glom Filt Rate - Afr Amer 99 mL/min (>60); Glucose 103 mg/dL (74-106); Sodium Level 137 mmol/L (136-145)
== END ==
LOC: OLS.WHLCAR 05:07
PROVIDERS: PCP Internal Medicine; Referring Provider Internal Medicine; Visit Provider Internal Medicine
DX: E83.52 Hypercalcemia (principal); F03.918 Unspecified dementia, unspecified severity, with other behavioral disturbance; R54 Age-related physical debility; R29.6 Repeated falls; M62.81 Muscle weakness (generalized); R26.2 Difficulty in walking, not elsewhere classified
CPT/HCPCS: 36415; 80048; 85025

== ENCOUNTER → 2022-11-21 | Outpatient (REF) | payer MEDICARE, OTHER, SELFPAY ==
[2022-11-21 10:21] LABS: Anion Gap 10 (5-15); BUN 33 mg/dL (7-18); BUN/Creat Ratio 50.8 RATIO (10-20); Calcium,Total 10.2 mg/dL (8.5-10.1); Chloride 103 mmol/L (98-107); Creatinine, Serum 0.65 mg/dL (0.55-1.02); EST Glomerular Filtration Rate 93 mL/min (>60); Est Glom Filt Rate - Afr Amer 112 mL/min (>60); Glucose 93 mg/dL (74-106); Potassium 4.2 mmol/L (3.5-5.1); Sodium Level 136 mmol/L (136-145)
== END ==
LOC: OLS.WHLCAR 04:00
PROVIDERS: PCP Internal Medicine; Referring Provider Internal Medicine; Visit Provider Internal Medicine
DX: E83.52 Hypercalcemia (principal); F03.918 Unspecified dementia, unspecified severity, with other behavioral disturbance; R54 Age-related physical debility; R29.6 Repeated falls; M62.81 Muscle weakness (generalized); R26.2 Difficulty in walking, not elsewhere classified
CPT/HCPCS: 36415; 80048

== ENCOUNTER → 2022-11-28 | Outpatient (REF) | payer MEDICARE, OTHER, SELFPAY ==
[2022-11-28 08:50] LABS: Absolute Lymphocyte Count 1.15 X10^3/uL (0.83-4.51); Basophil# 0.06 X10^3/uL; Basophil% 0.7 % (0-1); Eosinophil# 0.14 X10^3/uL; Eosinophils% 1.6 % (0-5); Hematocrit 37.1 % (37-47); Hemoglobin 11.9 g/dL (12.0-15.0); Lymphocyte # 1.15 X10^3/ul (0.83-4.51); Lymphocyte % 12.8 % (19-41); Mean Corp Hgb Conc 32.1 g/dL (32-36); Mean Corpuscular Hgb 31.3 pg (27.0-32.0); Mean Corpuscular Volume 97.6 fL (81-99); Mean Platelet Vol. 10.8 fl (6.2-12.0); Monocyte# 0.51 X10^3/uL; Monocyte% 5.7 % (0-10); NRBC Flagged by Analyzer 0 % (0-5); Neutrophil # 7.04 X10^3/uL (2.7-7.7); Neutrophil % 78.6 % (47-70); Platelet Count 287 K/mm3 (150-450); RBC Distribution Width CV 14.5 % (11.6-14.6); RBC Distribution Width SD 52.3 fl (35.1-43.9)
[2022-11-28 09:13] LABS: Anion Gap 6 (5-15); BUN 24 mg/dL (7-18); Chloride 103 mmol/L (98-107); EST Glomerular Filtration Rate 73 mL/min (>60); Est Glom Filt Rate - Afr Amer 88 mL/min (>60); Glucose 133 mg/dL (74-106); Sodium Level 136 mmol/L (136-145)
== END ==
LOC: OLS.WHLCAR 05:00
PROVIDERS: PCP Internal Medicine; Visit Provider Internal Medicine
DX: E83.52 Hypercalcemia (principal); F03.918 Unspecified dementia, unspecified severity, with other behavioral disturbance; R29.6 Repeated falls; M62.81 Muscle weakness (generalized); R26.2 Difficulty in walking, not elsewhere classified
CPT/HCPCS: 36415; 80048; 85025